=== PATIENT | male | born 1935 | race Caucasian/White ===

== ENCOUNTER 2018-10-21 15:51 | Inpatient (IN) | payer MEDICARE, OTHER ==
--- NOTE | 2018-10-21 16:15 | ED ---
Shortness of Breath - HPI Summary HPI Summary: 83 year old M presenting to [facility] accompanied by Starr with a chief complaint of shortness of breath since a few weeks ago, worse since yesterday. The patient rates the pain 0/10 in severity. Symptoms aggravated by exertion. Symptoms alleviated by nothing. reports fatigue and decreased appetite. Patient denies cough, fever, chest pain. Patient has hx COPD which he usually manages with medications per . Per , patient fell and broke his hip in June 2018 while they were in [place]. Patient was discharged home with O2 per , and stopped using the O2 after 1 month. Per , patient left the O2 equipment in [place]. They have been checking his O2 sat since returning home from [place]. In the last couple of weeks, O2 sat was in the 70s per . Patient is a former smoker. - History of Current Complaint Chief Complaint: EDShortnessOfBreath Time Seen by Provider: 10/21/18 16:05 Hx Obtained From: Patient, Family/Director Security Management - Onset/Duration: Lasting Weeks, Still Present, Worse Since - yesterday Timing: Constant Current Severity: None Aggravating Factors: Other - exertion Alleviating Factors: Nothing - Allergy/Home Medications Allergies/Adverse Reactions: Allergies Allergy/AdvReac Type Severity Reaction Status Date / Time No Known Allergies Allergy Verified 10/21/18 16:02 PMH/Surg Hx/FS Hx/Imm Hx Previously Healthy: No Endocrine/Hematology History: Denies: Hx Diabetes Cardiovascular History: Reports: Hx Coronary Artery Disease, Hx Hypercholesterolemia, Hx Myocardial Infarction Denies: Hx Angina, Hx Hypertension, Hx Pacemaker/ICD, Hx Valvular Heart Disease Respiratory History: Reports: Hx Chronic Obstructive Pulmonary Disease (COPD) GI History: Reports: Hx Gastroesophageal Reflux Disease - HX OF History: Denies: Hx Renal Disease Sensory History: Reports: Hx Cataracts - BILAT, Hx Contacts or Glasses Denies: Hx Hearing Aid Opthamlomology History: Reports: Hx Cataracts - BILAT, Hx Contacts or Glasses Neurological History: Reports: Hx Seizures - LAST ONE 2006 Psychiatric History: Denies: Hx Panic Disorder - Cancer History Cancer Type, Location and Year: 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 DOUBLE HERNIA. BILATERAL CATARACTS. RIGHT FEMUR Hx Anesthesia Reactions: No Infectious Disease History: No Infectious Disease History: Reports: Hx Shingles Denies: Hx Clostridium Difficile, Hx Hepatitis, Hx Human Immunodeficiency Virus (HIV), Hx of Known/Suspected MRSA, Hx Tuberculosis, Traveled Outside the [place] in Last 30 Days - Family History Known Family History: Positive: Other - cancer, rheumatoid arthritis - Social History Alcohol Use: Daily Alcohol Amount: 1/DAY Hx Substance Use: No Substance Use Type: Reports: None Hx Tobacco Use: Yes Smoking Status (MU): Former Smoker Type: Cigarettes, Pipe Length of Time of Smoking/Using Tobacco: APPROX 30YRS Have You Smoked in the Last Year: No Review of Systems Positive: Fatigue. Negative: Fever Negative: Chest Pain Positive: Shortness Of Breath. Negative: Cough Positive: Other - decreased appetite All Other Systems Reviewed And Are Negative: Yes Physical Exam - Summary Physical Exam Summary: Appearance: An elderly, slender man sitting on the stretcher in no acute distress Skin: Warm, dry, no obvious rash Eyes: sclera anicteric, no conjunctival pallor ENT: mucous membranes moist, pharynx appears normal Neck: Supple, nontender Respiratory: Breath sounds are distant but I do not hear any wheezing or focal signs of consolidation Cardiovascular: Normal S1, S2. No murmurs. Normal distal pulses in tibial and radial bilaterally. Abdomen: Soft, nontender, normal active bowel sounds present Musculoskeletal: Normal, Strength/ROM Intact Neurological: A&Ox3, awake and alert, mentation is normal, speech is fluent and appropriate Psychiatric: affect is normal, does not appear anxious or depressed Triage Information Reviewed: Yes Vital Signs On Initial Exam: Initial Vitals Temp Pulse Resp BP Pulse Ox 98.9 F 75 22 111/40 77 10/21/18 15:54 10/21/18 15:54 10/21/18 15:54 10/21/18 15:54 10/21/18 15:54 Vital Signs Reviewed: Yes Diagnostics - Vital Signs Vital Signs Temp Pulse Resp BP Pulse Ox 10/21/18 15:54 98.9 F 75 22 111/40 77 - Laboratory Result Diagrams: 10/21/18 16:22 10/21/18 16:22 Lab Statement: Any lab studies that have been ordered have been reviewed, and results considered in the medical decision making process. - Radiology CXR Radiology Interpretation Completed By: Radiologist Summary of Radiographic Findings: COPD WITH CHRONIC FIBROTIC CHANGE. ED physician has reviewed this report. - EKG 1623 Cardiac Rate: NL - 82 BPM EKG Rhythm: Sinus Rhythm Summary of EKG Findings: NSR at 82 BPM, P waves, QRS complex, and T waves are within normal limits, T waves and intervals are normal, no ischemic changes. This is a normal EKG. Course/Dx - Course Course Of Treatment: 83 year old M presenting to [facility] accompanied by Starr with a chief complaint of shortness of breath since a few weeks ago, worse since yesterday. reports fatigue and decreased appetite. Patient denies cough, fever, chest pain. Patient has hx COPD which he usually manages with medications per . In the last couple of weeks, O2 sat was in the 70s per . Patient is a former smoker. Physical exam findings: An elderly, slender man sitting on the stretcher in no acute distress. He has breath sounds that are distant but I do not hear any wheezing or focal signs of consolidation. An EKG reveals NSR at 82 BPM, P waves, QRS complex, and T waves are within normal limits, T waves and intervals are normal, no ischemic changes. The patient has a normal EKG. CXR reveals, per radiologist, COPD WITH CHRONIC FIBROTIC CHANGE. Test results with no significant abnormalities except for RBC 4.14, MCCV 106, MCH 36, absolute lymphs 0.5, D-dimer 260, BUN 31, creatinine 1.45, BUN/Creatinine ratio 21.4, glucose 127, alkaline phosphatase 109. In ED course, patient was given Duoneb. Spoke with Dr. Thomson, claudia , who agrees to admit patient. Patient will be admitted to the hospitalist. The patient is agreeable with this plan. - Diagnoses Provider Diagnoses: COPD (chronic obstructive pulmonary disease), Hypoxemia - Physician Notifications Discussed Care of Patient With: Lucho Thomson Time Discussed With Above Provider: 18:19 Instructed by Provider To: Other - Spoke with amna Cantrellist, who agrees to admit patient. Discharge - Sign-Out/Discharge Documenting (check all that apply): Patient Departure - Admit Patient Received Moderate/Deep Sedation with Procedure: No - Discharge Plan Condition: Stable Disposition: ADMITTED TO [facility] - Billing Disposition and Condition Condition: STABLE Disposition: Admitted to [facility] - Attestation Statements Document Initiated by Scribe: Yes Documenting Scribe: Quin Mejia Provider For Whom Scribe is Documenting (Include Credential): Jda Adams MD Scribe Attestation: I, Quin Mejia, scribed for Jad Adams MD on 10/21/18 at 2207. Scribe Documentation Reviewed: Yes Provider Attestation: The documentation as recorded by the scribe, Quin Mejia accurately reflects the service I personally performed and the decisions made by me, Jad Adams MD Status of Scribe Document: Viewed
[2018-10-21 16:31] LABS: ABS Eosinophils 0.1 10^3/ul (0-0.6); ABS Lymphocytes 0.5 10^3/ul (1.0-4.8); ABS Monocytes 0.6 10^3/ul (0-0.8); ABS Neutrophils 3.6 10^3/ul (1.5-7.7); Eosinophil % 2.6 %; Hematocrit 44 % (42-52); Hemoglobin 14.9 g/dL (14.0-18.0); Lymphocyte % 9.6 %; Mean Corpuscular HGB Conc 34 g/dL (31-36); Mean Corpuscular Hemoglobin 36 pg (27-31); Mean Corpuscular Volume 106 fL (80-94); Mean Platelet Volume 8.2 fL (7.4-10.4); Platelet Count 231 10^3/uL (150-450); Red Blood Count 4.14 10^6 /uL (4.18-5.48); Red Cell Distribution Width 14 % (10-15); White Blood Count 4.9 10^3/uL (3.5-10.8)
--- OUTSIDE RECORDS SUMMARY | 2018-10-21 16:39 | XMS REPORT | Continuity of Care Document ---
:1935 External Reference #:[id number] Author Name Marko Saldana MD Address [address] [place] [address] Care Team Providers Name Role Phone Marko Saldana MD Care Team Information Lead Enterprise Architect Unavailable Payers Date Identification Numbers Payment Provider Subscriber Effective: Policy Number: [id number] Medicare - Bswny d Ravin Cooper 2015 PayID: [id number] [address] [place] [address] Effective: 2015 Policy Number: [id number] WPS For Life Ravin Cooper PayID: [id number] [address] [place] [address] Family History Date Family Member(s) Observation Comments General Cancer, Esophageal General Rheumatoid Arthritis Social History Type Date Description Comments Sex Unknown Marital Status Lives With Female Partner Yonis (58 years). 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 Tobacco Use Start: Unknown Former Cigarette Quit 30+ YA End: Unknown Smoker ETOH Use Currently consumes 1.5 drinks daily alcohol Recreational Drug Use Denies Drug Use Exercise Type/Frequency Exercises regularly Exercises 4/wk. Allergies, Adverse Reactions, Alerts Description No Known Drug Allergies Medications Active Medications SIG Qnty Indications Ordering Date Provider Proair HFA inhale 2 puffs 25.5gm M25.559 Marko 04/14/2016 every 4 to 6 MD Nicholas 108(90Base) mcg/Act hours as needed Aerosol for wheezing or shortness of breath Advair Diskus Use 1 Inhalation [id number] Marko 04/14/2016 Twice A Day For MD Nicholas 100-50mcg/Dose Asthma Aerosol Carbatrol 2x daily Marko 01/01/2016 200mg MD Nicholas Caps ER 12HR Folic Acid 1 by mouth every Marko 01/01/2016 5mg day MD Nicholas Capsules Vitamin B12 1 by mouth every Marko 01/01/2016 5000mcg day MD Nicholas Tablets ER Aspirin 1 by mouth every Marko 01/01/2016 81mg day MD Nicholas Tablets DR Fish Oil Marko 01/01/2016 Concentrate MD Nicholas 1000mg Capsules Stool Softener 4 by mouth every Unknown day 100mg Capsules Atorvastatin Will Carcamo Calcium MD 10mg Tablets History Medications Cialis 1 by mouth every 30tabs N40.1 Marko Saldana, 09/08/2016 - 5mg day as needed 12/09/2016 Tablets Cephalexin 1 tab by mouth 9caps S61.012A Marko Saldana, 01/19/2016 - three times a day 09/08/2016 500mg Capsules Lipitor take one tablet by 30tabs Marko Saldana, 01/01/2016 - 80mg mouth every day as 10/06/2018 Tablets directed for high cholesterol Tamsulosin HCL take 1 capsule by 90caps N40.1 Marko Saldana, 2015 - mouth daily and 09/08/2016 0.4mg Capsules strain urine Immunizations CPT Code Status Date Vaccine Lot # 12049 Given 02/28/2018 [place] [id number] Given 12/09/2016 Tdap (Adacel) [id number] Given 09/08/2016 Prevnar-13 Pneumococcal Conjugate Vaccine [id number] 93051 Given 01/01/2016 Influenza Vaccine High Dose PF [id number] Given 05/09/2001 Pneumovax 23 (PPSV23) 65+ years or high risk 2 to 64 year old Vital Signs Date Vital Result Comment 10/06/2018 11:11am Weight 159.00 lb Weight 72.122 kg BP Systolic 100 mmHg BP Diastolic 60 mmHg Heart Rate 56 /min Body Temperature 98.6 F Respiratory Rate 20 /min O2 % BldC Oximetry 88 % 12/09/2016 12:55pm Weight 158.00 lb Weight 71.669 kg BP Systolic 102 mmHg BP Diastolic 54 mmHg Heart Rate 72 /min Body Temperature 98.4 F Respiratory Rate 20 /min Height 66.5 inches 5'6.50" BMI (Body Mass Index) 25.1 kg/m2 O2 % BldC Oximetry 93 % 09/08/2016 9:29am Weight 166.00 lb Weight 75.298 kg BP Systolic 112 mmHg BP Diastolic 54 mmHg Heart Rate 60 /min Body Temperature 98.1 F Respiratory Rate 16 /min O2 % BldC Oximetry 94 % copd 04/14/2016 9:46am Weight 166.00 lb Weight 75.298 kg BP Systolic 130 mmHg BP Diastolic 64 mmHg Heart Rate 69 /min Body Temperature 97.9 F Respiratory Rate 18 /min O2 % BldC Oximetry 96 % 01/19/2016 10:44am Weight 166.00 lb Weight 75.298 kg BP Systolic 130 mmHg BP Diastolic 62 mmHg Heart Rate 64 /min Body Temperature 98.0 F O2 % BldC Oximetry 96 % 01/01/2016 12:59pm Weight 162.00 lb Weight 73.483 kg BP Systolic 116 mmHg BP Diastolic 64 mmHg Heart Rate 68 /min Body Temperature 98.4 F Respiratory Rate 22 /min Height 67 inches 5'7" BMI (Body Mass Index) 25.4 kg/m2 Results Test Date Facility Test Result H/L Range Note Comp Metabolic 02/17/2018 [facility] Sodium 140 mmol/ L N 135-145 Panel [phone] Potassium 4.5 mmol/L N 3.5-5.0 Chloride 110 mmol/L N 101-111 Co2 Carbon Dioxide 25 mmol/L N 22-32 Anion Gap 5 mmol/L N 2-11 Glucose 95 mg/dL N 70-100 Blood Urea Nitrogen 20 mg/dL N 6-24 Creatinine 1.06 mg/dL N 0.67-1.17 BUN/Creatinine Ratio 18.9 N 8-20 Calcium 8.7 mg/dL N 8.6-10.3 Total Protein 5.7 g/dL Low 6.4-8.9 Albumin 3.7 g/dL N 3.2-5.2 Globulin 2.0 g/dL N 2-4 Albumin/Globulin Ratio 1.9 N 1-3 Total Bilirubin 0.50 mg/dL N 0.2-1.0 Alkaline Phosphatase 88 U/L N 34-104 Alt 22 U/L N 7-52 Ast 24 U/L N 13-39 Egfr Non- 66.9 >60 Egfr 80.9 >60 1 Lipid Profile 02/17/2018 [facility] Triglycerides 54 mg/dL 2 (Trig/Chol/HDL) [phone] Cholesterol 146 mg/dL 3 HDL Cholesterol 57.3 mg/dL 4 LDL Cholesterol 78 mg/dL 5 Laboratory test 02/17/2018 [facility] Creatine 55 U/ L N 10-223 6 finding [phone] Kinase(CK) Comp Metabolic 12/08/2017 [facility] Sodium 140 N 135-145 Panel [phone] mmol/L Potassium 4.5 mmol/L N 3.5-5.0 Chloride 108 mmol/L N 101-111 Co2 Carbon Dioxide 27 mmol/L N 22-32 Anion Gap 5 mmol/L N 2-11 Glucose 99 mg/dL N 70-100 Blood Urea Nitrogen 20 mg/dL N 6-24 Creatinine 1.13 mg/dL N 0.67-1.17 BUN/Creatinine Ratio 17.7 N 8-20 Calcium 8.5 mg/dL Low 8.6-10.3 Total Protein 5.8 g/dL Low 6.4-8.9 Albumin 3.5 g/dL N 3.2-5.2 Globulin 2.3 g/dL N 2-4 Albumin/Globulin Ratio 1.5 N 1-3 Total Bilirubin 0.30 mg/dL N 0.2-1.0 Alkaline Phosphatase 112 U/L High 34-104 Alt 22 U/L N 7-52 Ast 24 U/L N 13-39 Egfr Non- 62.3 >60 Egfr 75.4 >60 7 Lipid Profile 12/08/2017 [facility] Triglycerides 40 mg/dL 8 (Trig/Chol/HDL) [phone] Cholesterol 123 mg/dL 9 HDL Cholesterol 50.9 mg/dL 10 LDL Cholesterol 64 mg/dL 11 Laboratory test 12/08/2017 [facility] Creatine Kinase 88 U/L N 10-223 finding [phone] B-Type Natriuretic Peptide BNP 47 pg/mL 12 CBC Auto Diff 12/08/2017 [facility] White Blood 4.0 10^3/uL N 3.5-10.8 [phone] Count Red Blood Count 3.95 10^6/uL Low 4.00-5.40 Hemoglobin 14.4 g/dL N 14.0-18.0 Hematocrit 42 % N 42-52 Mean Corpuscular Volume 106 fL High 80-94 Mean Corpuscular Hemoglobin 37 pg High 27-31 Mean Corpuscular HGB Conc 34 g/dL N 31-36 Red Cell Distribution Width 13 % N 10.5-15 Platelet Count 180 10^3/uL N 150-450 Mean Platelet Volume 9.0 um3 N 7.4-10.4 Abs Neutrophils 2.6 10^3/uL N 1.5-7.7 Abs Lymphocytes 0.7 10^3/uL Low 1.0-4.8 Abs Monocytes 0.5 10^3/uL N 0-0.8 Abs Eosinophils 0.1 10^3/uL N 0-0.6 Abs Basophils 0 10^3/uL N 0-0.2 Abs Nucleated RBC 0 10^3/uL Granulocyte % 64.8 % N 38-83 Lymphocyte % 17.9 % Low 25-47 Monocyte % 13.6 % High 0-7 Eosinophil % 3.2 % N 0-6 Basophil % 0.5 % N 0-2 Nucleated Red Blood Cells % 0.1 Laboratory test 09/30/2017 [facility] Carbamazepine 5.9 g/mL N 4.0-12.0 13 finding [phone] (Tegretol) Comp Metabolic 09/30/2017 [facility] Sodium 142 mmol/ L N 139-145 Panel [phone] Potassium 4.4 mmol/L N 3.5-5.0 Chloride 109 mmol/L N 101-111 Co2 Carbon Dioxide 26 mmol/L N 22-32 Anion Gap 7 mmol/L N 2-11 Glucose 90 mg/dL N 70-100 Blood Urea Nitrogen 25 mg/dL High 6-24 Creatinine 1.15 mg/dL N 0.67-1.17 BUN/Creatinine Ratio 21.7 High 8-20 Calcium 8.9 mg/dL N 8.6-10.3 Total Protein 5.8 g/dL Low 6.4-8.9 Albumin 3.6 g/dL N 3.2-5.2 Globulin 2.2 g/dL N 2-4 Albumin/Globulin Ratio 1.6 N 1-3 Total Bilirubin 0.50 mg/dL N 0.2-1.0 Alkaline Phosphatase 90 U/L N 34-104 Alt 24 U/L N 7-52 Ast 26 U/L N 13-39 Egfr Non- 61.0 >60 Egfr 78.5 >60 14 CBC Auto Diff 09/30/2017 [facility] White Blood 4.1 10^3/uL N 3.5-10.8 [phone] Count Red Blood Count 3.91 10^6/uL Low 4.0-5.4 Hemoglobin 14.2 g/dL N 14.0-18.0 Hematocrit 42 % N 42-52 Mean Corpuscular Volume 107 fL High 80-94 15 Mean Corpuscular Hemoglobin 36 pg High 27-31 Mean Corpuscular HGB Conc 34 g/dL N 31-36 Red Cell Distribution Width 13 % N 10.5-15 Platelet Count 152 10^3/uL N 150-450 Mean Platelet Volume 9.0 um3 N 7.4-10.4 Abs Neutrophils 2.8 10^3/uL N 1.5-7.7 Abs Lymphocytes 0.7 10^3/uL Low 1.0-4.8 Abs Monocytes 0.5 10^3/uL N 0-0.8 Abs Eosinophils 0.1 10^3/uL N 0-0.6 Abs Basophils 0 10^3/uL N 0-0.2 Abs Nucleated RBC 0 10^3/uL Granulocyte % 68.9 % N 38-83 Lymphocyte % 16.9 % Low 25-47 Monocyte % 11.1 % High 0-7 Eosinophil % 2.7 % N 0-6 Basophil % 0.4 % N 0-2 Nucleated Red Blood Cells % 0.1 Laboratory 09/22/2017 [facility] Surgical SEE RESULT 16, 17 test finding [phone] Pathology BELOW Laboratory 12/15/2016 In House Lab Fecal Hemoglobin NEGATIVE test finding [phone] [employer] Laboratory 12/10/2016 [facility] Creatine 53 U/L N 10-2 18 test finding [phone] Kinase(CK) 23 Lipid Profile 12/10/2016 [facility] Triglycerides 52 mg/dL N 19 (Trig/Chol/HDL [phone] ) Cholesterol 124 mg/dL N 20 HDL Cholesterol 53.3 mg/dL N 21 LDL Cholesterol 60 mg/dL N 22 Comp Metabolic Panel 12/10/2016 [facility] Sodium 138 mmol/L N 133-145 [phone] Potassium 4.3 mmol/L N 3.5-5.0 Chloride 106 mmol/L N 101-111 Co2 Carbon Dioxide 25 mmol/L N 22-32 Anion Gap 7 mmol/L N 2-11 Glucose 97 mg/dL N 70-100 Blood Urea Nitrogen 20 mg/dL N 6-24 Creatinine 1.12 mg/dL N 0.67-1.17 BUN/Creatinine Ratio 17.9 N 8-20 Calcium 8.9 mg/dL N 8.6-10.3 Total Protein 5.7 g/dL Low 6.4-8.9 Albumin 3.4 g/dL N 3.2-5.2 Globulin 2.3 g/dL N 2-4 Albumin/Globulin Ratio 1.5 N 1-3 Total Bilirubin 0.50 mg/dL N 0.2-1.0 Alkaline Phosphatase 76 U/L N 34-104 Alt 19 U/L N 7-52 Ast 20 U/L N 13-39 Egfr Non- 63.1 N >60 Egfr 81.1 N >60 23 CBC Auto Diff 12/10/2016 [facility] White Blood 4.6 10^3/uL N 3.5-10.8 [phone] Count Red Blood Count 4.18 10^6/uL N 4.0-5.4 Hemoglobin 15.1 g/dL N 14.0-18.0 Hematocrit 45 % N 42-52 Mean Corpuscular Volume 107 fL High 80-94 24 Mean Corpuscular Hemoglobin 36 pg High 27-31 Mean Corpuscular HGB Conc 34 g/dL N 31-36 Red Cell Distribution Width 13 % N 10.5-15 Platelet Count 142 10^3/uL Low 150-450 Mean Platelet Volume 9 um3 N 7.4-10.4 Abs Neutrophils 3.0 10^3/uL N 1.5-7.7 Abs Lymphocytes 0.8 10^3/uL Low 1.0-4.8 Abs Monocytes 0.6 10^3/uL N 0-0.8 Abs Eosinophils 0.2 10^3/uL N 0-0.6 Abs Basophils 0 10^3/uL N 0-0.2 Abs Nucleated RBC 0.01 10^3/uL N Granulocyte % 64.1 % N 38-83 Lymphocyte % 17.5 % Low 25-47 Monocyte % 13.2 % High 1-9 Eosinophil % 4.7 % N 0-6 Basophil % 0.5 % N 0-2 Nucleated Red Blood Cells % 0.1 N Laboratory test 12/10/2016 [facility] Hemoglobin A1c 5.8 % N Less 25, 26 finding [phone] (Glyco HGB) than 6.0 Laboratory test 04/07/2016 [facility] Folic Acid > 20.00 N >3.99 finding [phone] (Folate) ng/mL Vitamin B12 695 pg/mL N 180-914 27 Comp Metabolic Panel 04/07/2016 [facility] Sodium 136 mmol/L N 133-145 [phone] Potassium 4.4 mmol/L N 3.5-5.0 Chloride 105 mmol/L N 101-111 Co2 Carbon Dioxide 27 mmol/L N 22-32 Anion Gap 4 mmol/L N 2-11 Glucose 100 mg/dL N 70-100 Blood Urea Nitrogen 19 mg/dL N 6-24 Creatinine 1.23 mg/dL High 0.67-1.17 BUN/Creatinine Ratio 15.4 N 8-20 Calcium 8.8 mg/dL N 8.6-10.3 Total Protein 5.8 g/dL Low 6.4-8.9 Albumin 3.5 g/dL N 3.2-5.2 Globulin 2.3 g/dL N 2-4 Albumin/Globulin Ratio 1.5 N 1-3 Total Bilirubin 0.60 mg/dL N 0.2-1.0 Alkaline Phosphatase 80 U/L N 34-104 Alt 25 U/L N 7-52 Ast 23 U/L N 13-39 Egfr Non- 56.6 N >60 Egfr 72.8 N >60 28 CBC Auto Diff 04/07/2016 [facility] White Blood 4.6 10^3/uL N 3.5-10.8 [phone] Count Red Blood Count 4.54 10^6/uL N 4.0-5.4 Hemoglobin 16.0 g/dL N 14.0-18.0 Hematocrit 48 % N 42-52 Mean Corpuscular Volume 105 fL High 80-94 Mean Corpuscular Hemoglobin 35 pg High 27-31 Mean Corpuscular HGB Conc 34 g/dL N 31-36 Red Cell Distribution Width 13 % N 10.5-15 Platelet Count 162 10^3/uL N 150-450 Mean Platelet Volume 9 um3 N 7.4-10.4 Abs Neutrophils 3.1 10^3/uL N 1.5-7.7 Abs Lymphocytes 0.8 10^3/uL Low 1.0-4.8 Abs Monocytes 0.6 10^3/uL N 0-0.8 Abs Eosinophils 0.1 10^3/uL N 0-0.6 Abs Basophils 0 10^3/uL N 0-0.2 Abs Nucleated RBC 0 10^3/uL N Granulocyte % 67.2 % N 38-83 Lymphocyte % 17.2 % Low 25-47 Monocyte % 13.2 % High 1-9 Eosinophil % 2.1 % N 0-6 Basophil % 0.3 % N 0-2 Nucleated Red Blood Cells % 0 N Laboratory test 04/07/2016 [facility] B-Type 25 pg/ mL N 29 finding [phone] Natriuretic Peptide BNP Comp Metabolic 01/28/2016 [facility] Sodium 137 mmol/ L N 133-1 30 Panel [phone] Potassium 4.4 mmol/L N 3.5-5.0 Chloride 105 mmol/L N 101-111 Co2 Carbon Dioxide 28 mmol/L N 22-32 Anion Gap 4 mmol/L N 2-11 Glucose 101 mg/dL High 70-100 Blood Urea Nitrogen 16 mg/dL N 6-24 Creatinine 1.15 mg/dL N 0.67-1.17 BUN/Creatinine Ratio 13.9 N 8-20 Calcium 8.9 mg/dL N 8.6-10.3 Total Protein 5.9 g/dL Low 6.4-8.9 Albumin 3.6 g/dL N 3.2-5.2 Globulin 2.3 g/dL N 2-4 Albumin/Globulin Ratio 1.6 N 1-3 Total Bilirubin 0.40 mg/dL N 0.2-1.0 Alkaline Phosphatase 86 U/L N 34-104 Alt 24 U/L N 7-52 Ast 25 U/L N 13-39 Egfr Non- 61.3 N >60 Egfr 78.9 N >60 31 Lipid Profile 01/28/2016 [facility] Triglycerides 62 mg/dL N 32 (Trig/Chol/HDL) [phone] Cholesterol 135 mg/dL N 33 HDL Cholesterol 52.1 mg/dL N 34 LDL Cholesterol 71 mg/dL N 35 Laboratory test 01/28/2016 [facility] Creatine Kinase 60 U/L N 10-223 36 finding [phone] Lipid Profile 01/01/2016 [facility] Triglycerides 78 mg/dL N 37 (Trig/Chol/HDL) [phone] Cholesterol 123 mg/dL N 38 HDL Cholesterol 49.0 mg/dL N 39 LDL Cholesterol 58 mg/dL N 40 Laboratory test 01/01/2016 [facility] Hemoglobin A1c 5.9 % N Less than 41 finding [phone] (Glyco HGB) 6.0 CBC Auto Diff 01/01/2016 [facility] White Blood 5.0 N 3.5-10.8 [phone] Count 10^3/uL Red Blood Count 4.31 10^6/uL N 4.0-5.4 Hemoglobin 15.0 g/dL N 14.0-18.0 Hematocrit 46 % N 42-52 Mean Corpuscular Volume 106 fL High 80-94 42 Mean Corpuscular Hemoglobin 35 pg High 27-31 Mean Corpuscular HGB Conc 33 g/dL N 31-36 Red Cell Distribution Width 13 % N 10.5-15 Platelet Count 161 10^3/uL N 150-450 Mean Platelet Volume 10 um3 N 7.4-10.4 Abs Neutrophils 3.6 10^3/uL N 1.5-7.7 Abs Lymphocytes 0.7 10^3/uL Low 1.0-4.8 Abs Monocytes 0.6 10^3/uL N 0-0.8 Abs Eosinophils 0.1 10^3/uL N 0-0.6 Abs Basophils 0 10^3/uL N 0-0.2 Abs Nucleated RBC 0 10^3/uL N Granulocyte % 70.8 % N 38-83 Lymphocyte % 14.8 % Low 25-47 Monocyte % 11.9 % High 1-9 Eosinophil % 2.1 % N 0-6 Basophil % 0.4 % N 0-2 Nucleated Red Blood Cells % 0.1 N Comp Metabolic Panel 01/01/2016 [facility] Sodium 139 mmol/L N 133-145 [phone] Potassium 4.8 mmol/L N 3.5-5.0 Chloride 106 mmol/L N 101-111 Co2 Carbon Dioxide 27 mmol/L N 22-32 Anion Gap 6 mmol/L N 2-11 Glucose 94 mg/dL N 70-100 Blood Urea Nitrogen 24 mg/dL N 6-24 Creatinine 1.22 mg/dL High 0.67-1.17 BUN/Creatinine Ratio 19.7 N 8-20 Calcium 9.1 mg/dL N 8.6-10.3 Total Protein 6.1 g/dL Low 6.4-8.9 Albumin 3.6 g/dL N 3.2-5.2 Globulin 2.5 g/dL N 2-4 Albumin/Globulin Ratio 1.4 N 1-3 Total Bilirubin 0.40 mg/dL N 0.2-1.0 Alkaline Phosphatase 87 U/L N 34-104 Alt 22 U/L N 7-52 Ast 21 U/L N 13-39 Egfr Non- 57.3 N >60 Egfr 73.7 N >60 43 Laboratory test 01/01/2016 [facility] PSA Screening 3.690 ng/mL N 0-4.000 44 finding [phone] 1 Because ethnic data is not always readily available, this report includes an eGFR for both -Americans and non- Americans. The National Kidney Disease Education Program (NKDEP) does not endorse the use of the MDRD equation for patients that are not between the ages of 18 and 70, are , have extremes of body size, muscle mass, or nutritional status, or are non- or non-. According to the National Kidney Foundation, irrespective of diagnosis, the stage of the disease is based on the level of kidney function: Stage Description GFR(mL/min/1.73 m(2)) 1 Kidney damage with normal or decreased GFR 90 2 Kidney damage with mild decrease in GFR 60-89 3 Moderate decrease in GFR 30-59 4 Severe decrease in GFR 15-29 5 Kidney failure <15 (or dialysis) 2 Desirable: <150 Borderline High: 150-199 High: 200-499 Very High: >500 3 Desirable: <200 Borderline High: 200-239 High: >239 4 Low: <40 Desirable: 40-60 High: >60 5 Desirable: <100 Near Optimal: 100-129 Borderline High: 130-159 High: 160-189 Very High: >189 6 FASTING draw in am prior to first dose of medication Copy Result to: MARKO SALDANA ([id number]) 7 Because ethnic data is not always readily available, this report includes an eGFR for both -Americans and non- Americans. The National Kidney Disease Education Program (NKDEP) does not endorse the use of the MDRD equation for patients that are not between the ages of 18 and 70, are , have extremes of body size, muscle mass, or nutritional status, or are non- or non-. According to the National Kidney Foundation, irrespective of diagnosis, the stage of the disease is based on the level of kidney function: Stage Description GFR(mL/min/1.73 m(2)) 1 Kidney damage with normal or decreased GFR 90 2 Kidney damage with mild decrease in GFR 60-89 3 Moderate decrease in GFR 30-59 4 Severe decrease in GFR 15-29 5 Kidney failure <15 (or dialysis) 8 Desirable: <150 Borderline High: 150-199 High: 200-499 Very High: >500 9 Desirable: <200 Borderline High: 200-239 High: >239 10 Low: <40 Desirable: 40-60 High: >60 11 Desirable: <100 Near Optimal: 100-129 Borderline High: 130-159 High: 160-189 Very High: >189 12 >100 to <200 pg/mL: likely compensated congestive heart failure (CHF) 200 to 400 pg/mL: likely moderate CHF >400 pg/mL: likely moderate to severe CHF 13 FASTING 14 Because ethnic data is not always readily available, this report includes an eGFR for both -Americans and non- Americans. The National Kidney Disease Education Program (NKDEP) does not endorse the use of the MDRD equation for patients that are not between the ages of 18 and 70, are , have extremes of body size, muscle mass, or nutritional status, or are non- or non-. According to the National Kidney Foundation, irrespective of diagnosis, the stage of the disease is based on the level of kidney function: Stage Description GFR(mL/min/1.73 m(2)) 1 Kidney damage with normal or decreased GFR 90 2 Kidney damage with mild decrease in GFR 60-89 3 Moderate decrease in GFR 30-59 4 Severe decrease in GFR 15-29 5 Kidney failure <15 (or dialysis) 15 Consistent with Previous Results Reported on 12/10/16 16 1198-A:Morphology: ;DDX: Squamous Cell Carcinoma;Location: right mid helix; 1198-B:Morphology: ;D 17 SEE RESULT BELOW Name: RAVIN COOPER : [address]: Gabriela Schwartz MD Acct: [id number] Unit: [id number] AGE: 82 Location: [facility] Re09/22/17 SEX: M Status: REG REF SPEC: [id number] ELI: 09/22/17-1309 [facility] DR: Gabriela Schwartz MD REQ: [id number] RECD: 09/22/17 STATUS: TORRES HORTA DR: Marko Saldana MD _ ORDERED: LEVEL 4/2 COMMENTS: [id number] FINAL DIAGNOSIS 1. Skin, right mid helix, biopsy: -- Hypertrophic actinic keratosis. 2. Skin, left mid helix, biopsy: -- Invasive squamous cell carcinoma, well-differentiated. PRE-OPERATIVE DIAGNOSIS Squamous cell carcinoma GROSS DESCRIPTION 1. The specimen is received in formalin labeled, Right Mid [place], and consists of a 0.8 x 0.5 by up to 0.3 cm white-pink indurated skin fragment which is inked, trisected and entirely submitted in one cassette. 2. The specimen is received in formalin labeled, Left Mid [place], and consists of a 0.5 x 0.5 x 0.2 cm blanched white friable bosselated to scabrous skin fragment with a 0.3 x 0.2 cm erythematous area. The specimen is inked, bisected and entirely submitted in one cassette. Signed by and Reported on: Elena Randolph MD 09/23/17 1022 END OF REPORT DEPARTMENT OF PATHOLOGY, [address] [place] [address] Emigdio Chin M.D. Director [facility] # [id number] 18 FASTING cc pmd Copy Result to: MARKO SALDANA ([id number]) 19 Desirable <150 Borderline high 150-199 High 200-499 Very High >500 20 Desirable <200 Borderline high 200-239 High >239 21 Low <40 Desirable: 40-60 High: >60 22 Desirable: <100 mg/dL Near Optimal: 100-129 mg/dL Borderline High: 130-159 mg/dL High: 160-189 mg/dL Very High: >189 mg/dL 23 Because ethnic data is not always readily available, this report includes an eGFR for both -Americans and non- Americans. The National Kidney Disease Education Program (NKDEP) does not endorse the use of the MDRD equation for patients that are not between the ages of 18 and 70, are , have extremes of body size, muscle mass, or nutritional status, or are non- or non-. According to the National Kidney Foundation, irrespective of diagnosis, the stage of the disease is based on the level of kidney function: Stage Description GFR(mL/min/1.73 m(2)) 1 Kidney damage with normal or decreased GFR 90 2 Kidney damage with mild decrease in GFR 60-89 3 Moderate decrease in GFR 30-59 4 Severe decrease in GFR 15-29 5 Kidney failure <15 (or dialysis) 24 Consistent with previous results on 04/07/16. 25 cbc, cmp, lipid were done by another doc. Results are in another order dated 12/10/13. 26 Therapeutic target for the treatment of diabetes Mellitus patients is <7% HBA1C, and in selective patients <6.0%.Please refer to [place] [employer] Diabetic care guidelines for further information. 27 Normal Range 180 to 914 Indeterminate Range 145 to 180 Deficient Range <145 28 Because ethnic data is not always readily available, this report includes an eGFR for both -Americans and non- Americans. The National Kidney Disease Education Program (NKDEP) does not endorse the use of the MDRD equation for patients that are not between the ages of 18 and 70, are , have extremes of body size, muscle mass, or nutritional status, or are non- or non-. According to the National Kidney Foundation, irrespective of diagnosis, the stage of the disease is based on the level of kidney function: Stage Description GFR(mL/min/1.73 m(2)) 1 Kidney damage with normal or decreased GFR 90 2 Kidney damage with mild decrease in GFR 60-89 3 Moderate decrease in GFR 30-59 4 Severe decrease in GFR 15-29 5 Kidney failure <15 (or dialysis) 29 >100 to <200 pg/mL: likely compensated congestive heart failure (CHF) 200 to 400 pg/mL: likely moderate CHF >400 pg/mL: likely moderate to severe CHF 30 FASTING 31 Because ethnic data is not always readily available, this report includes an eGFR for both -Americans and non- Americans. The National Kidney Disease Education Program (NKDEP) does not endorse the use of the MDRD equation for patients that are not between the ages of 18 and 70, are , have extremes of body size, muscle mass, or nutritional status, or are non- or non-. According to the National Kidney Foundation, irrespective of diagnosis, the stage of the disease is based on the level of kidney function: Stage Description GFR(mL/min/1.73 m(2)) 1 Kidney damage with normal or decreased GFR 90 2 Kidney damage with mild decrease in GFR 60-89 3 Moderate decrease in GFR 30-59 4 Severe decrease in GFR 15-29 5 Kidney failure <15 (or dialysis) 32 Desirable <150 Borderline high 150-199 High 200-499 Very High >500 33 Desirable <200 Borderline high 200-239 High >239 34 Low <40 Desirable: 40-60 High: >60 35 Desirable: <100 mg/dL Near Optimal: 100-129 mg/dL Borderline High: 130-159 mg/dL High: 160-189 mg/dL Very High: >189 mg/dL 36 FASTING 37 Desirable <150 Borderline high 150-199 High 200-499 Very High >500 38 Desirable <200 Borderline high 200-239 High >239 39 Low <40 Desirable: 40-60 High: >60 40 Desirable: <100 mg/dL Near Optimal: 100-129 mg/dL Borderline High: 130-159 mg/dL High: 160-189 mg/dL Very High: >189 mg/dL 41 Therapeutic target for the treatment of diabetes Mellitus patients is <7% HBA1C, and in selective patients <6.0%.Please refer to [place] [employer] Diabetic care guidelines for further information. 42 Consistent with previous results on 10/29/15. 43 Because ethnic data is not always readily available, this report includes an eGFR for both -Americans and non- Americans. The National Kidney Disease Education Program (NKDEP) does not endorse the use of the MDRD equation for patients that are not between the ages of 18 and 70, are , have extremes of body size, muscle mass, or nutritional status, or are non- or non-. According to the National Kidney Foundation, irrespective of diagnosis, the stage of the disease is based on the level of kidney function: Stage Description GFR(mL/min/1.73 m(2)) 1 Kidney damage with normal or decreased GFR 90 2 Kidney damage with mild decrease in GFR 60-89 3 Moderate decrease in GFR 30-59 4 Severe decrease in GFR 15-29 5 Kidney failure <15 (or dialysis) 44 Serum levels of PSA measured using the [employer] [place] DXI Hybritech immunoassay should not be interpreted as absolute evidence of the presence or absence of disease. The PSA value should be used in conjunction with other pertinent clinical diagnostic procedures. The values obtained with different assay methods or kits cannot be used interchangeably. Procedures Date Code Description Status 10/06/2018 19248 Brief Emotional/Behav Assessment W/ Scoring Doc Per Completed Standard Inst 04/14/2016 35558 Spirometry Completed Encounters Type Date Location Provider Dx Diagnosis Office Visit 12/09/2016 Main Office Marko Saldana, Z00.8 Encounter for other 1:00p general examination N40.1 Benign prostatic hyperplasia with lower urinary tract symp E78.5 Hyperlipidemia, unspecified G40.89 Other seizures Z23 Encounter for immunization Office Visit 09/08/2016 9:30a Main Office Marko Saldana, N40.1 Benign prostatic MD hyperplasia with lower urinary tract symp F52.21 Male erectile disorder R42 Dizziness and giddiness Z23 Encounter for immunization Office Visit 04/14/2016 9:45a Main Office Marko Saldana, R06.2 Wheezing MD Office Visit 01/19/2016 10:45a Main Office Marko Saldana, S61.012A Laceration w/o fb MD of left thumb w/o damage to nail, init Office Visit 01/01/2016 1:00p Main Office Marko Saldana, Z00.8 Encounter for other general examination N40.1 Enlarged prostate with lower urinary tract symptoms Z23 Encounter for immunization Plan of Treatment 10/06/2018 - Marko Saldana, MDM25.559 Pain in unspecified hipNew Therapy: Physical Therapy-Evaluate And TreatComments:I think the request for additional strength training and balance training in the wake of his hip fracture is very reasonable. Overall he is recovering very nicely, but he did have a fall with injury and we would like to be careful in preventing another one.Follow up:PT [id number] Chronic obstructive pulmonary disease, unspecifiedComments:His COPD has progressed to the point where he is borderline in terms of oxygen. the patient himself prefers to avoid that step at this time.The three-part test itself was inconclusive, he did not seem to benefit that much from the oxygen. If it starts to bother him more, we can repeat the test and see if we get a more reasonable result.
[2018-10-21 16:49] LABS: Albumin 3.5 g/dL (3.2-5.2); Albumin/Globulin Ratio 1.1 (1-3); BUN/Creatinine Ratio 21.4 (8-20); Calcium 9.2 mg/dL (8.6-10.3); EGFR African American 56.4 (>60); EGFR Non-African American 46.6 (>60); Globulin 3.2 g/dL (2-4); Potassium 4.6 mmol/L (3.5-5.0); Total Bilirubin 0.4 mg/dL (0.2-1.0); Total Protein 6.7 g/dL (6.4-8.9); Troponin I 0.01 ng/mL (<0.04)
[2018-10-21] MEDS ORDERED: Albuterol/Ipratropium NEB.SOL* Albuterol 2.5 MG/Ipratropium 0.5 MG 3 ML INH ONE (17:50)
[2018-10-21] MEDS ORDERED: Ondansetron INJ* 2 MG/ML VIAL IV PRN (19:23)
[2018-10-21] MEDS ORDERED: Acetaminophen TAB* 325 MG PO PRN (19:23)
[2018-10-21] MEDS ORDERED: Iodixanol* (CONTRAST) 320 MG/ML 100 ML SDV IV ONE (19:51)
[2018-10-21] MEDS ORDERED: Docusate CAP* 100 MG PO PRN (20:02)
[2018-10-21] MEDS ORDERED: Spiriva Inhaler DEVICE* 1 EACH DEVICE INH ONE (21:00)
[2018-10-21] MEDS: Mometasone/Formoter 100/5 MDI INH SCH (21:14)
[2018-10-21] MEDS: Tiotropium CAP.INH* CAP.INH/18 MCG (USE ORDER SET !) INH SCH (21:21)
[2018-10-21] MEDS: Enoxaparin(*) 40 MG/0.4 ML SYR SUBCUT SCH (21:52)
[2018-10-21] MEDS: carBAMazepine ER TAB(*) 200 MG PO SCH (21:53)
--- NOTE | 2018-10-21 23:17 | HP ---
CC: Dr. Peterson * HISTORY AND PHYSICAL: DATE OF ADMISSION: 10/21/18 PRIMARY CARE PHYSICIAN: Dr. Peterson. PROVIDER: Ayad Zarate NP. ATTENDING PHYSICIAN: Dr. Lucho Thomson * (dictated by Ayad Zarate NP). STRADDLE BUG DRIVER: Dr. Carcamo. NEUROLOGIST: Dr. Christen Ramon. CHIEF COMPLAINT: Shortness of breath. HISTORY OF PRESENT ILLNESS: Mr. Cooper is an 83-year-old male who presented to the ER today with concern for worsening shortness of breath. He reports that he has been short of breath over the past 2 weeks with it worsening every day. He also reports feeling cold, and he states that he was also noted to be dusky and ashen in color by other people. He did see his PCP about a week ago, who recommended that he start back on oxygen, but he declined it at that time. Previously, he went to [place] this winter with his and states that on 's he fell and broke his left hip and had a replacement. He was in the hospital and then in subacute rehab. When he was discharged from the hospital to the rehab, he was placed on oxygen for desaturation. He was subsequently discharged back to home with oxygen, but stopped using it as he felt he did not need it any longer. He has been off of the oxygen for approximately a month and has felt okay, has denied any shortness of breath and left his home oxygen equipment in [place]. He has been home in [place] for about a month, saying that he came back in September. Of note, he states that he also had another injury following his hip surgery when he fell and actually cracked 2 ribs. Here in the ER, Mr. Cooper was noted to have oxygen saturations in the 70s, and he was placed on oxygen here and continues to have saturations in the 80s to low 90s. He is currently on 4 L nasal cannula. He does report feeling better , now being on oxygen. He denies any recent cold or flu symptoms. He denies any chest pain. He denies any sick contacts or cough. He does note that he had some wheezing and has been utilizing his albuterol inhaler for shortness of breath, although he denies any wheezing currently or to date. He denies any abdominal pain, nausea, vomiting, diarrhea, urinary symptoms, any focal weakness or sensory loss. He denies any joint pains or muscle pains, rashes or lesions. PAST MEDICAL HISTORY: Includes: 1. COPD. 2. Chronic diastolic heart failure. 3. Seizure disorder with his last seizure being several years ago. 4. Coronary artery disease with 2 stents placed. 5. Hypercholesterolemia. 6. Chronic lower extremity edema secondary to venous insufficiency. 7. Neuropathy. 8. History of skin cancer that was removed by Dr. Schwartz. HOME MEDICATIONS: 1. Docusate sodium 600 mg b.i.d. 2. [place]-3 1000 mg daily. 3. Aspirin 81 mg daily. 4. Vitamin B complex 1 tab daily. 5. Folic acid 1 mg daily. 6. Advair 100-50 one puff inhaled b.i.d. 7. Atorvastatin 10 mg q.p.m. 8. Carbamazepine 400 mg b.i.d. ALLERGIES: No known allergies. FAMILY HISTORY: Reports mother with a history of rheumatoid arthritis. His father had cancer and of cancer. SOCIAL HISTORY: He is a former smoker. He quit over 30 years ago. He does drink 1 glass of wine on most days. He denies any history of drug use. He does like to participate in renovation projects and work with chemicals. He also reports history with previous exposures. He is . His , Starr, is his healthcare proxy and surrogate decision maker in the event of emergency. They do have a MOLST on file, which indicates that he would be a DNR and trial intubation. She is to bring a copy of their MOLST form in from home. REVIEW OF SYSTEMS: A 14-point review of systems was completed. All pertinent positives and negatives as per HPI, others not mentioned are negative. PHYSICAL EXAMINATION VITAL SIGNS: Temperature 99.2, heart rate 84, respiratory rate 20, blood pressure 113/89, and O2 saturation of 88% on 4 L nasal cannula. HEENT: Head is atraumatic, normocephalic. Face is symmetrical. Pupils are equal, round, and reactive to light. Extraocular movements are intact. Anicteric sclerae. Oral mucosa is slightly dry. No oropharyngeal erythema or exudate. NECK: Supple with full range of motion. No JVD noted. No carotid bruits auscultation. No lymphadenopathy appreciated. LUNGS: Clear to auscultation, but diminished throughout. He has prolonged expiratory phase, but no significant wheezing. There are no rales. There are no rhonchi. HEART: Normal S1, S2 heart sounds with regular rate and rhythm. No murmurs. There is bilateral lower extremity edema that is pitting at about 1+. Distal pulses are present. ABDOMEN: Soft, nontender, nondistended with normoactive bowel sounds. MUSCULOSKELETAL: There is active range of motion in all 4 extremities. There is no clubbing or cyanosis. NEUROLOGIC: He is alert and oriented x4. Speech is fluent. There are no focal deficits. Cranial nerves II through XII are grossly intact. There is equal strength in the upper and lower extremities. PSYCH: His affect is appropriate. SKIN: Grossly intact. It is warm and dry. LABORATORY DATA AND DIAGNOSTIC STUDIES: CBC: WBC 4.9, hemoglobin 14.9, hematocrit 44, platelet count 231. D-dimer 260. CMP: Sodium 139, potassium 4.6, chloride 106, carbon dioxide 26, BUN 31, creatinine 1.45, glucose 127, calcium 9.2, total bilirubin 0.4, AST 25, ALT 23, alk phos 109, troponin 0.01. BNP 63. Total protein 6.7, albumin 3.5. EKG reviewed and compared to previous shows normal sinus rhythm at 82 beats per minute with P waves. No ischemic ST or T-wave changes. Chest x-ray shows COPD with chronic fibrotic change. Old medical records were reviewed. ASSESSMENT AND PLAN: This is an 83-year-old male who presents today with concern for shortness of breath with accompanying hypoxemia. We will admit him to OBV status. He is not in any acute distress, but there is concern for his level of hypoxemia. Plan is as follows: 1. Shortness of breath with hypoxemia: Suspect chronic obstructive pulmonary disease, although there appeared to be no relevant accompanying symptoms and the onset of his hypoxia is somewhat confusing. I do think he may benefit from a CT scan to more definitively look at his lungs, so this has been ordered with contrast. His D-dimer is 260, but given that he was tolerating being off of oxygen and now has a significant oxygen requirement with significant desaturations, I do feel that further evaluation is warranted. He states that he has been on Advair for years with little effect noted. Likely with his level of chronic obstructive pulmonary disease, he would benefit from Spiriva, which I have started. I do not hear any overt wheezing. He is not in any acute distress while wearing his oxygen. I do not think steroids are indicated at this time, although they certainly could be added on. He does not appear toxic. He is afebrile. He does not have a white count. He likely does not need antibiotics at this time, but we will continue to evaluate. He will definitely need home oxygen, and when this is ,arranged he likely could go home with further outpatient workup. We discussed that he will likely benefit from a pulmonology consult. If there is time and availability, Dr. Guillen could perhaps see him as an inpatient if available. 2. Chronic diastolic heart failure with chronic lower extremity edema. This does not appear to be an acute exacerbation. Per the patient, his weights at home have been stable. We will perform daily weights here. He is not on any diuretics. He does not complain of leg pain or worsening edema. We will continue to monitor. 3. Microcytosis. He is on vitamin B12 and folic acid, which we will continue. Continue outpatient followup with his PCP. 4. Coronary artery disease. Continue aspirin 81 mg and atorvastatin. 5. History of seizure disorder. He is on Tegretol, which we will continue. He should continue outpatient neurology followup as indicated. 6. FEN. He is ordered a heart-healthy diet. 7. DVT prophylaxis. He is ordered Lovenox. 8. Code status. He is a DNR, trial intubation. 9. Disposition. To be discharged to home when medically stable. TIME SPENT: Approximately 65 minutes was spent on admission with greater than half of the time spent [id number] with the patient and his , obtaining history and physical, performing the physical examination, and reviewing the plan of care. Plan of care was also reviewed with my attending, Dr. Lucho Thomson, who is in agreement. AYAD ZARATE, RIAN [id number]/CPS #: [id number] RENNY
[2018-10-22 07:04] LABS: ABS Eosinophils 0.1 10^3/ul (0-0.6); ABS Lymphocytes 0.4 10^3/ul (1.0-4.8); ABS Monocytes 0.6 10^3/ul (0-0.8); ABS Neutrophils 2.6 10^3/ul (1.5-7.7); Eosinophil % 3.5 %; Hematocrit 39 % (42-52); Hemoglobin 13.5 g/dL (14.0-18.0); Lymphocyte % 10.8 %; Mean Corpuscular HGB Conc 34 g/dL (31-36); Mean Corpuscular Hemoglobin 36 pg (27-31); Mean Corpuscular Volume 106 fL (80-94); Mean Platelet Volume 8.6 fL (7.4-10.4); Platelet Count 198 10^3/uL (150-450); Red Blood Count 3.72 10^6 /uL (4.18-5.48); Red Cell Distribution Width 14 % (10-15); White Blood Count 3.8 10^3/uL (3.5-10.8)
[2018-10-22 07:11] LABS: Anion Gap 7 mmol/L (2-11); BUN/Creatinine Ratio 19.7 (8-20); Blood Urea Nitrogen 23 mg/dL (6-24); CO2 Carbon Dioxide 22 mmol/L (22-32); Calcium 8.3 mg/dL (8.6-10.3); Chloride 108 mmol/L (101-111); EGFR African American 72.2 (>60); EGFR Non-African American 59.7 (>60); Glucose 116 mg/dL (70-100); Sodium 137 mmol/L (135-145)
[2018-10-22] MEDS: carBAMazepine ER TAB(*) 200 MG PO SCH ×2 (07:39→21:43)
[2018-10-22] MEDS: OMEGA PO SCH (07:40)
[2018-10-22] MEDS: Folic Acid TAB* 1 MG PO SCH (07:40)
[2018-10-22] MEDS: Vitamin B Complex TAB PO SCH (07:40)
[2018-10-22] MEDS: FISH OIL PO SCH (07:40)
[2018-10-22] MEDS: EPA PO SCH (07:40)
[2018-10-22] MEDS: DHA PO SCH (07:40)
[2018-10-22] MEDS: Aspirin EC TAB* 81 MG TAB.EC PO SCH (07:40)
[2018-10-22] MEDS: Mometasone/Formoter 100/5 MDI INH SCH ×2 (08:39→19:53)
[2018-10-22 09:49] LABS: Folate > 20.00 ng/mL (>3.99)
[2018-10-22] MEDS: Docusate CAP* 100 MG PO SCH ×2 (10:23→21:43)
[2018-10-22] MEDS: Polyethylene Glycol 3350* 17 GM PACKET PO SCH ×2 (10:23→21:44)
--- NOTE | 2018-10-22 11:15 | PN ---
Subjective Date of Service: 10/22/18 Interval History: Mr. Cooper is feeling better today. He offers no complaints other than wanting to go home. SOB has improved, but still having SOB when ambulating to the bathroom. He denies CP, N/V. Asking for Colace 300mg BID as that is what he takes at home. He has problems with constipation. Disappointed that he will need to go home with oxygen, but understanding and agreeable. No concerns from nursing. Family History: Unchanged from Admission Social History: Unchanged from Admission Past Medical History: Unchanged from Admission Objective Active Medications: Acetaminophen (Tylenol Tab*) 650 mg PO Q4H PRN FEVER/PAIN Aspirin (Aspirin Ec Tab*) 81 mg PO DAILY DOREEN Atorvastatin Calcium (Lipitor*) 10 mg PO QPM DOREEN Carbamazepine (Tegretol Xr Tab(*)) 400 mg PO BID DOREEN Docusate Sodium (Colace Cap*) 100 mg PO BEDTIME DOREEN Docusate Sodium (Colace Cap*) 200 mg PO DAILY DOREEN Enoxaparin Sodium (Lovenox(*)) 40 mg SUBCUT Q24H DOREEN Folic Acid (Folvite Tab*) 1 mg PO DAILY DOREEN Mometasone Furoate/Formoterol Fumar (Dulera 100/5 Mdi*) 2 puff INH BID DOREEN ([place]-3/Dha/Epa/ (Fish Oil 1,000 Mg)) 1,000 mg PO DAILY DOREEN Ondansetron HCl (Zofran Inj*) 4 mg IV Q6H PRN NAUSEA/VOMITING Polyethylene Glycol/Electrolytes (Miralax*) 17 gm PO BID DORENE Tiotropium [place] (Spiriva Cap.Inh*) 1 cap INH 0900 DOREEN Vitamin B Complex/Vitamin E (B Complex-50*) 1 tab PO DAILY [facility] Vital Signs - 8 hr 10/22/18 10/22/18 10/22/18 07:34 07:45 08:40 Temperature 98.6 F Pulse Rate 81 89 Respiratory 16 16 18 Rate Blood Pressure 117/56 (mmHg) O2 Sat by Pulse 91 91 96 Oximetry Oxygen Devices in Use Now: Nasal Cannula - 6L Appearance: Elderly male sitting in bed in NAD Eyes: No Scleral Icterus Ears/Nose/Mouth/Throat: Mucous Membranes Moist Neck: NL Appearance and Movements; NL JVP, Trachea Midline Respiratory: Symmetrical Chest Expansion and Respiratory Effort, Clear to Auscultation - Diminished Cardiovascular: NL Sounds; No Murmurs; No JVD, RRR Abdominal: NL Sounds; No Tenderness; No Distention Skin: No Rash or Ulcers Neurological: Alert and Oriented x 3 Lines/Tubes/Other Access: Clean, Dry and Intact Peripheral IV Nutrition: Taking PO's Result Diagrams: 10/22/18 06:38 10/22/18 06:38 Assess/Plan/Problems-Billing Assessment: Mr. Cooper is an 83 yo M with PMH of COPD, chronic dCHF, seizures, CAD with stents, HLD, venous insufficiency, and neuropathy; who was recently placed on home oxygen after hip replacement but subsequently stopped using the oxygen and he did not feel he needed it and now presents with hypoxia. - Patient Problems (1) Hypoxia Code(s): R09.02 - HYPOXEMIA Comment: - Secondary to advancing COPD - CTA negative for PE or pneumonia - Recently on 3L oxygen at home after hip repair (in [place]) but subsequently stopped as he did not feel he needed it any longer - Will need home oxygen arranged; walk test tomorrow - Titrate oxygen to maintain sat >88% (2) COPD (chronic obstructive pulmonary disease) Code(s): J44.9 - CHRONIC OBSTRUCTIVE PULMONARY DISEASE, UNSPECIFIED Comment: - No evidence of exacerbation or indication for steroids - Will need outpatient f/u with pulmonology - Continue Spiriva (started on admission), Dulera (3) Chronic diastolic congestive heart failure Code(s): I50.32 - CHRONIC DIASTOLIC (CONGESTIVE) HEART FAILURE Comment: - No evidence of exacerbation - Not on home medication - Daily weights (4) Seizure disorder Code(s): G40.909 - EPILEPSY, UNSP, NOT INTRACTABLE, WITHOUT STATUS EPILEPTICUS Comment: - Continue Tegretol (5) CAD (coronary artery disease) Code(s): I25.10 - ATHSCL HEART DISEASE OF [place] CORONARY ARTERY W/O ANG PCTRS Comment: - Continue aspirin, atorvastatin (6) Hyperlipidemia Code(s): E78.5 - HYPERLIPIDEMIA, UNSPECIFIED Comment: - Continue atorvastatin (7) Macrocytosis without anemia Code(s): D75.89 - OTHER SPECIFIED DISEASES OF BLOOD AND BLOOD-FORMING ORGANS Comment: - Chronic, MCV at baseline - Vitamin B and folic acid levels WNL - Continue vit B, folic acid (8) DVT prophylaxis Code(s): Z29.9 - ENCOUNTER FOR PROPHYLACTIC MEASURES, UNSPECIFIED Comment: - Lovenox (9) DNR (do not resuscitate) Comment: Status and Disposition: Observation. Will need home oxygen arranged prior to d/c. Attending: Migdalia Zarate
[2018-10-22] MEDS: Atorvastatin* 10 MG TAB PO SCH (16:33)
[2018-10-22] MEDS ORDERED: Polyethylene Glycol 3350* 17 GM PACKET PO SCH (21:00)
[2018-10-22] MEDS: Enoxaparin(*) 40 MG/0.4 ML SYR SUBCUT SCH (21:44)
[2018-10-23] MEDS: Tiotropium CAP.INH* CAP.INH/18 MCG (USE ORDER SET !) INH SCH (08:44)
[2018-10-23] MEDS: Mometasone/Formoter 100/5 MDI INH SCH ×2 (08:44→20:00)
[2018-10-23] MEDS: FISH OIL PO SCH (09:07)
[2018-10-23] MEDS: DHA PO SCH (09:07)
[2018-10-23] MEDS: EPA PO SCH (09:07)
[2018-10-23] MEDS: OMEGA PO SCH (09:07)
[2018-10-23] MEDS: Polyethylene Glycol 3350* 17 GM PACKET PO SCH ×2 (09:19→21:56)
[2018-10-23] MEDS: Vitamin B Complex TAB PO SCH (09:21)
[2018-10-23] MEDS: Folic Acid TAB* 1 MG PO SCH (09:21)
[2018-10-23] MEDS: Docusate CAP* 100 MG PO SCH ×2 (09:21→21:57)
[2018-10-23] MEDS: Aspirin EC TAB* 81 MG TAB.EC PO SCH (09:21)
[2018-10-23] MEDS: carBAMazepine ER TAB(*) 200 MG PO SCH ×2 (09:21→21:57)
--- NOTE | 2018-10-23 14:16 | PN ---
Subjective Date of Service: 10/23/18 Interval History: Mr. Cooper is feeling fine today. He offers no complaints and would like to go home. He denies SOB at rest, but had some SOB while ambulating to the bathroom. Has an occasional dry cough which is his baseline. Denies CP, N/V. Nursing reports patient desaturated overnight and was up to 15L at one point. Now down to 8L this morning on my exam. After my exam, nurse ambulated with patient. He ambulated with 10L and dropped to 82%. Family History: Unchanged from Admission Social History: Unchanged from Admission Past Medical History: Unchanged from Admission Objective Active Medications: Acetaminophen (Tylenol Tab*) 650 mg PO Q4H PRN FEVER/PAIN Aspirin (Aspirin Ec Tab*) 81 mg PO DAILY DOREEN Atorvastatin Calcium (Lipitor*) 10 mg PO QPM DOREEN Carbamazepine (Tegretol Xr Tab(*)) 400 mg PO BID DOREEN Docusate Sodium (Colace Cap*) 100 mg PO BEDTIME DOREEN Docusate Sodium (Colace Cap*) 200 mg PO DAILY DOREEN Enoxaparin Sodium (Lovenox(*)) 40 mg SUBCUT Q24H DOREEN Folic Acid (Folvite Tab*) 1 mg PO DAILY DOREEN Mometasone Furoate/Formoterol Fumar (Dulera 100/5 Mdi*) 2 puff INH BID DOREEN ([place]-3/Dha/Epa/ (Fish Oil 1,000 Mg)) 1,000 mg PO DAILY DOREEN Ondansetron HCl (Zofran Inj*) 4 mg IV Q6H PRN NAUSEA/VOMITING Polyethylene Glycol/Electrolytes (Miralax*) 17 gm PO BID DOREEN Tiotropium [place] (Spiriva Cap.Inh*) 1 cap INH 0900 DOREEN Vitamin B Complex/Vitamin E (B Complex-50*) 1 tab PO DAILY DOREEN Vital Signs - 8 hr 10/23/18 10/23/18 10/23/18 08:00 08:45 09:00 Temperature 98.1 F Pulse Rate 73 75 Respiratory 19 18 Rate Blood Pressure 120/63 (mmHg) O2 Sat by Pulse 91 90 88 Oximetry 10/23/18 11:00 Temperature 97.7 F Pulse Rate 65 Respiratory 18 Rate Blood Pressure 110/55 (mmHg) O2 Sat by Pulse 92 Oximetry Oxygen Devices in Use Now: High Flow Nasal Cannula - 10L Appearance: Elderly male sitting in bed in NAD Eyes: No Scleral Icterus Ears/Nose/Mouth/Throat: Mucous Membranes Moist Neck: NL Appearance and Movements; NL JVP, Trachea Midline Respiratory: Symmetrical Chest Expansion and Respiratory Effort, Clear to Auscultation - Diminished Cardiovascular: NL Sounds; No Murmurs; No JVD, RRR Abdominal: NL Sounds; No Tenderness; No Distention Skin: No Rash or Ulcers Neurological: Alert and Oriented x 3 Lines/Tubes/Other Access: Clean, Dry and Intact Peripheral IV Nutrition: Taking PO's Result Diagrams: 10/22/18 06:38 10/22/18 06:38 Assess/Plan/Problems-Billing Assessment: Mr. Cooper is an 83 yo M with PMH of COPD, chronic dCHF, seizures, CAD with stents, HLD, venous insufficiency, and neuropathy; who was recently placed on home oxygen after hip replacement but subsequently stopped using the oxygen and he did not feel he needed it and now presents with hypoxia. - Patient Problems (1) Hypoxia Code(s): R09.02 - HYPOXEMIA Comment: - Secondary to advancing COPD - CTA negative for PE or pneumonia - Recently on 3L oxygen at home after hip repair (in [place]) but subsequently stopped as he did not feel he needed it any longer - Appreciate pulmonology consult - Will need home oxygen arranged, but unclear how much he will need - Titrate oxygen to maintain sat >88% (2) COPD (chronic obstructive pulmonary disease) Code(s): J44.9 - CHRONIC OBSTRUCTIVE PULMONARY DISEASE, UNSPECIFIED Comment: - No evidence of exacerbation or indication for steroids - Will need outpatient f/u with pulmonology - Continue Spiriva (started on admission), Dulera (3) Chronic diastolic congestive heart failure Code(s): I50.32 - CHRONIC DIASTOLIC (CONGESTIVE) HEART FAILURE Comment: - No evidence of exacerbation - Not on home medication - Daily weights (4) Seizure disorder Code(s): G40.909 - EPILEPSY, UNSP, NOT INTRACTABLE, WITHOUT STATUS EPILEPTICUS Comment: - Continue Tegretol (5) CAD (coronary artery disease) Code(s): I25.10 - ATHSCL HEART DISEASE OF [place] CORONARY ARTERY W/O ANG PCTRS Comment: - Continue aspirin, atorvastatin (6) Hyperlipidemia Code(s): E78.5 - HYPERLIPIDEMIA, UNSPECIFIED Comment: - Continue atorvastatin (7) Macrocytosis without anemia Code(s): D75.89 - OTHER SPECIFIED DISEASES OF BLOOD AND BLOOD-FORMING ORGANS Comment: - Chronic, MCV at baseline - Vitamin B and folic acid levels WNL - Continue vit B, folic acid (8) DVT prophylaxis Code(s): Z29.9 - ENCOUNTER FOR PROPHYLACTIC MEASURES, UNSPECIFIED Comment: - Lovenox (9) DNR (do not resuscitate) Comment: Status and Disposition: Observation. Will need home oxygen arranged prior to d/c. Attending: Lucho Thomson
[2018-10-23] MEDS: Atorvastatin* 10 MG TAB PO SCH (18:06)
[2018-10-23] MEDS ORDERED: Furosemide IV* 10 MG/ML 2 ML VIAL (20 MG) IV ONE (18:10)
--- NOTE | 2018-10-23 20:21 | CONS ---
PULMONARY CONSULTATION REPORT: DATE OF CONSULT: 10/23/18 CONSULTATION REQUESTED BY: Jeannie Love NP REASON FOR CONSULT: Evaluation of hypoxemic respiratory failure. HISTORY OF PRESENT ILLNESS: The patient is an 83-year-old male with history of COPD, significant emphysema, chronic diastolic heart failure, seizure disorder, coronary artery disease with stent placement, chronic lower extremity edema, thought to be secondary to venous insufficiency. The patient comes in for evaluation of worsening shortness of breath. The patient usually lives in [place] in the winter. He had a fall, broke his hip and had replacement. He was noted to be hypoxemic when he presented to the hospital. The patient was discharged home with O2 supplementation. He has also been home, returned back to [place] in September. He also had another injury following his hip surgery after recurrent fall and cracked 2 ribs. The patient has been having worsening shortness of breath in the past 2 to 3 weeks. Denies cough or sputum production. Denies recent cold or flu- like symptoms. He was found to be hypoxemic with O2 sat in the 70s on arrival in the ED. He was placed on O2 supplementation. He has been requiring O2 at around 4 L at rest and about 6 to 8 L with ambulation. The patient denies sick contacts. Denies significant cough. He has been noticing some wheezing and using albuterol inhaler. Denies abdominal pain, nausea, vomiting, diarrhea, urinary symptoms, or neurological issues. The patient is a former smoker, quit 30 years ago. 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 PAST MEDICAL HISTORY: 1. COPD. 2. Chronic diastolic heart failure. 3. Seizure disorder. 4. Coronary artery disease, 2 stents placed. 5. Dyslipidemia. 6. Chronic lower extremity edema. 7. Neuropathy. 8. Skin cancer. MEDICATIONS AT HOME: 1. Docusate sodium. 2. [place]-3. 3. Aspirin. 4. Vitamin B complex. 5. Folic acid. 6. Advair. 7. Atorvastatin. 8. Carbamazepine. ALLERGIES: No known drug allergies. FAMILY HISTORY: Mother with rheumatoid arthritis. Father with cancer. SOCIAL HISTORY: Former smoker, quit 30 years ago. Drinks 1 glass of wine. Denies drug abuse. REVIEW OF SYSTEMS: All 14 systems reviewed and as per HPI. PHYSICAL EXAM: The patient is in bed, in no apparent distress. Vital Signs: Temperature 98.4, pulse 66 beats per minute, respiratory rate 18 to 24 per minute, O2 sat 91% on 6 L, blood pressure 132/62. HEENT: Pupils equal, reactive to light. Mucous membranes moist. Lungs: Diminished air entry bilaterally. No wheezing. Crackles at bases. Cardiovascular: S1, S2 present, regular. Abdomen: Soft, nontender, nondistended. Bowel sounds present. Extremities: Normal range of motion. Neuro: Alert, awake, oriented x3. No focal deficits. Skin: Some bruises in the upper extremities. DIAGNOSTIC STUDIES/LAB DATA: WBC count 3.8, hemoglobin 13.5, hematocrit 39, platelet count 198. Sodium 137, potassium 4.0, chloride 108, bicarb 22, BUN 23 , creatinine 1.17. Chest x-ray on admission was personally reviewed by me - evidence of hyperinflation with interstitial opacities. CTA of the chest was also personally reviewed by me and with the patient and his at bedside - the patient with extensive emphysematous changes bilaterally. The patient with possible filling defects in second order pulmonary branches in the left upper lobe, unable to rule out if it is an artifact. Small bilateral pleural effusions, right greater than left. The patient with evidence of small hiatal hernia. Linear scarring in the right lung apex. Mild ground-glass densities bilaterally. IMPRESSION AND RECOMMENDATIONS: 83-year-old male with significant smoking history, prior occupational exposures, with evidence of extensive emphysematous changes in the lungs. The patient likely has hypoxemia from long time given significant emphysematous changes in his lungs. Probably, he was not previously diagnosed with hypoxemia. He also has chronic lower extremity edema. He has diastolic dysfunction. He does have small bilateral pleural effusions. There is question of possible filling defect in the left subsegmental pulmonary artery. However, given that we are not able to confirm that and given risk with frequent falls, unable to assess at this time. Probably weighing the risks and benefits at this point, the small clot in the lung might not be of a concern. He does appear to have chronic hypoxemia looking at his lung findings, which might have worsened acutely with likely pulmonary embolism or fluid overload into his lungs. We will order lower extremity Dopplers to rule out deep venous thrombosis. We will order small dose of Lasix. I had extensive discussion with the patient and at bedside regarding his hypoxemic condition and possibility of acute on chronic hypoxemic respiratory failure, likely from fluid overload or small pulmonary embolism. We will assess the response to diuresis. We would consider arterial blood gas if he continues to have significant hypoxemia to ascertain that it is not secondary to poor pulse oximetry reading. The patient appears to be congested in the nasal passages. Might benefit from OxyMask. Thank you for allowing me to participate in the care of your patient. TIME SPENT: Total time spent in assessing the patient, obtaining history and physical, physical exam at bedside and reviewing the imaging findings, pathophysiology of the shortness of breath and hypoxemic respiratory failure exceeded 60 minutes. [id number]/CPS #: [id number] MTDD
[2018-10-23] MEDS: Enoxaparin(*) 40 MG/0.4 ML SYR SUBCUT SCH (21:58)
[2018-10-24 06:17] LABS: ABS Eosinophils 0.2 10^3/ul (0-0.6); ABS Lymphocytes 0.5 10^3/ul (1.0-4.8); ABS Monocytes 0.8 10^3/ul (0-0.8); Eosinophil % 4.5 %; Hematocrit 44 % (42-52); Hemoglobin 14.7 g/dL (14.0-18.0); Lymphocyte % 11.2 %; Mean Corpuscular HGB Conc 34 g/dL (31-36); Mean Corpuscular Hemoglobin 36 pg (27-31); Mean Corpuscular Volume 107 fL (80-94); Mean Platelet Volume 8.3 fL (7.4-10.4); Nucleated Red Blood Cells % 0.1; Platelet Count 211 10^3/uL (150-450); Red Cell Distribution Width 14 % (10-15); White Blood Count 4.5 10^3/uL (3.5-10.8)
[2018-10-24] MEDS: OMEGA PO SCH (07:58)
[2018-10-24] MEDS: EPA PO SCH (07:58)
[2018-10-24] MEDS: FISH OIL PO SCH (07:58)
[2018-10-24] MEDS: DHA PO SCH (07:58)
[2018-10-24] MEDS: Docusate CAP* 100 MG PO SCH ×2 (08:08→19:57)
[2018-10-24] MEDS: Folic Acid TAB* 1 MG PO SCH (08:08)
[2018-10-24] MEDS: carBAMazepine ER TAB(*) 200 MG PO SCH ×2 (08:09→19:59)
[2018-10-24] MEDS: Aspirin EC TAB* 81 MG TAB.EC PO SCH (08:09)
[2018-10-24] MEDS: Vitamin B Complex TAB PO SCH (08:09)
[2018-10-24] MEDS: Polyethylene Glycol 3350* 17 GM PACKET PO SCH ×2 (08:09→19:57)
[2018-10-24] MEDS: Tiotropium CAP.INH* CAP.INH/18 MCG (USE ORDER SET !) INH SCH (08:40)
[2018-10-24] MEDS: Mometasone/Formoter 100/5 MDI INH SCH ×2 (08:42→19:32)
[2018-10-24] MEDS ORDERED: Saline NASAL SPRAY 0.65%* BTL BOTH NARES PRN (08:52)
--- NOTE | 2018-10-24 14:02 | PN ---
Subjective Date of Service: 10/24/18 Interval History: Mr. Cooper is feeling well today. He offers no complaints, but is anxious to go home. He does understand the need for continued hospitalization at this point. He was up to the bathroom, shaving at the sink, and denies any SOB on exertion. Denies CP, N/V, dizziness. No concerns from oxygen, though he is still requiring 8L to maintain sats at rest. Family History: Unchanged from Admission Social History: Unchanged from Admission Past Medical History: Unchanged from Admission Objective Active Medications: Acetaminophen (Tylenol Tab*) 650 mg PO Q4H PRN FEVER/PAIN Aspirin (Aspirin Ec Tab*) 81 mg PO DAILY DOREEN Atorvastatin Calcium (Lipitor*) 10 mg PO QPM DOREEN Carbamazepine (Tegretol Xr Tab(*)) 400 mg PO BID DOREEN Docusate Sodium (Colace Cap*) 100 mg PO BEDTIME DOREEN Docusate Sodium (Colace Cap*) 200 mg PO DAILY DOREEN Enoxaparin Sodium (Lovenox(*)) 40 mg SUBCUT Q24H DOREEN Folic Acid (Folvite Tab*) 1 mg PO DAILY DOREEN Mometasone Furoate/Formoterol Fumar (Dulera 100/5 Mdi*) 2 puff INH BID DOREEN ([place]-3/Dha/Epa/ (Fish Oil 1,000 Mg)) 1,000 mg PO DAILY DOREEN Ondansetron HCl (Zofran Inj*) 4 mg IV Q6H PRN NAUSEA/VOMITING Polyethylene Glycol/Electrolytes (Miralax*) 17 gm PO BID DOREEN Sodium Chloride (Sodium Chloride 0.65% Nasal [place]*) 1 spray BOTH NARES Q4H PRN CONGESTION Tiotropium [place] (Spiriva Cap.Inh*) 1 cap INH 0900 DOREEN Vitamin B Complex/Vitamin E (B Complex-50*) 1 tab PO DAILY DOREEN Vital Signs - 8 hr 10/24/18 10/24/18 10/24/18 08:00 08:15 08:43 Temperature 97.8 F Pulse Rate 65 73 Respiratory 22 16 Rate Blood Pressure 95/50 94/52 (mmHg) O2 Sat by Pulse 93 90 Oximetry 10/24/18 11:36 Temperature 97.6 F Pulse Rate 64 Respiratory 20 Rate Blood Pressure 106/53 (mmHg) O2 Sat by Pulse 95 Oximetry Oxygen Devices in Use Now: OxyMask - 8L Appearance: Elderly male sitting in bed in NAD Eyes: No Scleral Icterus Ears/Nose/Mouth/Throat: Mucous Membranes Moist Neck: NL Appearance and Movements; NL JVP, Trachea Midline Respiratory: Symmetrical Chest Expansion and Respiratory Effort, Clear to Auscultation Cardiovascular: NL Sounds; No Murmurs; No JVD, RRR Abdominal: NL Sounds; No Tenderness; No Distention Extremities: - - Mild nonpitting BLE Skin: No Rash or Ulcers Neurological: Alert and Oriented x 3, NL Gait Lines/Tubes/Other Access: Clean, Dry and Intact Peripheral IV Nutrition: Taking PO's Result Diagrams: 10/24/18 06:05 10/22/18 06:38 Assess/Plan/Problems-Billing Assessment: Mr. Cooper is an 83 yo M with PMH of COPD, chronic dCHF, seizures, CAD with stents, HLD, venous insufficiency, and neuropathy; who was recently placed on home oxygen after hip replacement but subsequently stopped using the oxygen and he did not feel he needed it and now presents with hypoxia. - Patient Problems (1) Hypoxia Code(s): R09.02 - HYPOXEMIA Comment: - Secondary to COPD - CTA negative for PE (there is a questionable filling defect, not conclusive for PE) or pneumonia - Recently on 3L oxygen at home after hip repair (in [place]) but subsequently stopped as he did not feel he needed it any longer - Appreciate pulmonology consult; recommends BLE US to r/o DVT, furosemide x1, ABG if continued hypoxia - BLE US negative for DVT, but the right saphenofemoral junction shows mild thickening which may reflect remote thrombus - ABG today shows normal pH, but low pO2 - Will need home oxygen arranged, but unclear how much he will need as he still has very high requirements at this point - Received furosemide x1 yesterday d/t concern for overload, though no significant improvement since then - Titrate oxygen to maintain sat >88% (2) COPD (chronic obstructive pulmonary disease) Code(s): J44.9 - CHRONIC OBSTRUCTIVE PULMONARY DISEASE, UNSPECIFIED Comment: - No evidence of exacerbation or indication for steroids - Will need outpatient f/u with pulmonology - Continue Spiriva (started on admission), Dulera (3) Chronic diastolic congestive heart failure Code(s): I50.32 - CHRONIC DIASTOLIC (CONGESTIVE) HEART FAILURE Comment: - No evidence of exacerbation - Not on home medication - Daily weights (4) Seizure disorder Code(s): G40.909 - EPILEPSY, UNSP, NOT INTRACTABLE, WITHOUT STATUS EPILEPTICUS Comment: - Continue Tegretol (5) CAD (coronary artery disease) Code(s): I25.10 - ATHSCL HEART DISEASE OF [place] CORONARY ARTERY W/O ANG PCTRS Comment: - Continue aspirin, atorvastatin (6) Hyperlipidemia Code(s): E78.5 - HYPERLIPIDEMIA, UNSPECIFIED Comment: - Continue atorvastatin (7) Macrocytosis without anemia Code(s): D75.89 - OTHER SPECIFIED DISEASES OF BLOOD AND BLOOD-FORMING ORGANS Comment: - Chronic, MCV at baseline - Vitamin B and folic acid levels WNL - Continue vit B, folic acid (8) DVT prophylaxis Code(s): Z29.9 - ENCOUNTER FOR PROPHYLACTIC MEASURES, UNSPECIFIED Comment: - Lovenox (9) DNR (do not resuscitate) Comment: Status and Disposition: Inpatient. Anticipate d/c home when medically stable, though unclear when that will be d/t continued hypoxia and high oxygen requirements. Attending: Rosemarie Javier
--- NOTE | 2018-10-24 17:04 | PN ---
Progress Note - Progress Note Date of Service: 10/24/18 - Pulm f/u note Note: Pt seen and examined at bedside. Pt reports feeling slightly better today, he is also in good spirit today. FiO2 requirement slightly down to 6L. WAs able to ambulate to restroom with O2 Active Medications Generic Name Dose Route Start Last Admin Trade Name Freq PRN Reason Stop Dose Admin Acetaminophen 650 mg 10/21/18 19:23 Tylenol Tab* PO Q4H PRN FEVER/PAIN Aspirin 81 mg 10/22/18 09:00 10/24/18 08:09 Aspirin Ec Tab* PO 81 mg DAILY DOREEN Administration Atorvastatin Calcium 10 mg 10/22/18 18:00 10/23/18 18:06 Lipitor* PO 10 mg QPM DOREEN Administration Carbamazepine 400 mg 10/21/18 22:00 10/24/18 08:09 Tegretol Xr Tab(*) PO 400 mg BID DOREEN Administration Docusate Sodium 100 mg 10/22/18 21:00 10/23/18 21:57 Colace Cap* PO 100 mg BEDTIME DOREEN Administration Docusate Sodium 200 mg 10/22/18 10:00 10/24/18 08:08 Colace Cap* PO 200 mg DAILY DOREEN Administration Enoxaparin Sodium 40 mg 10/21/18 20:00 10/23/18 21:58 Lovenox(*) SUBCUT 40 mg Q24H DOREEN Administration Folic Acid 1 mg 10/22/18 09:00 10/24/18 08:08 Folvite Tab* PO 1 mg DAILY DOREEN Administration Mometasone Furoate/Formoterol Fumar 2 puff 10/21/18 21:00 10/24/18 08:42 Dulera 100/5 Mdi* INH 2 puff BID DOREEN Administration ([place]-3/Dha/Epa/ 1,000 mg 10/22/18 09:00 10/24/18 07:58 Fish Oil 1,000 Mg) PO Not Given DAILY DOREEN Ondansetron HCl 4 mg 10/21/18 19:23 Zofran Inj* IV Q6H PRN NAUSEA/VOMITING Polyethylene Glycol/Electrolytes 17 gm 10/22/18 11:00 10/24/18 08:09 Miralax* PO 17 gm BID DOREEN Administration Sodium Chloride 1 spray 10/24/18 08:52 Sodium Chloride 0.65% Nasal [place]* BOTH NARES Q4H PRN CONGESTION Tiotropium [place] 1 cap 10/21/18 21:00 10/24/18 08:40 Spiriva Cap.Inh* INH 1 cap 0900 DOREEN Administration Vitamin B Complex/Vitamin E 1 tab 10/22/18 09:00 10/24/18 08:09 B Complex-50* PO 1 tab DAILY DOREEN Administration Vital Signs Temp Pulse Resp BP Pulse Ox 97.6 F 64 20 106/53 95 10/24/18 11:36 10/24/18 11:36 10/24/18 11:36 10/24/18 11:36 10/24/18 11:36 O/E: Pt in NAD HEENT: PERRLA, no JVD Lungs: Diminished air entry, crackles+ CVS: S1, S2+, regular Abd: Soft, BS+ Ext: Normal ROM Skin: No rash Neuro: No focal deficits Laboratory Results - last 24 hr 10/24/18 10/24/18 06:05 12:30 WBC 4.5 RBC 4.10 L Hgb 14.7 Hct 44 MCV 107 H MCH 36 H MCHC 34 RDW 14 Plt Count 211 MPV 8.3 Neut % (Auto) 65.2 Lymph % (Auto) 11.2 [place] % (Auto) 18.4 Eos % (Auto) 4.5 Baso % (Auto) 0.7 Absolute Neuts (auto) 3.0 Absolute Lymphs (auto) 0.5 L Absolute Monos (auto) 0.8 Absolute Eos (auto) 0.2 Absolute Basos (auto) 0.0 Absolute Nucleated RBC 0.0 Nucleated RBC % 0.1 Patient Temperature Not Reportable ABG pH 7.45 ABG pH (Temp Correct) Not Reportable ABG pCO2 34 L ABG pCO2 (Temp Corrct Not Reportable ABG pO2 63 L ABG pO2 (Temp Correct Not Reportable ABG HCO3 24.8 ABG O2 Saturation 92.7 L ABG Base Excess 0.1 Respiration Rate Not Reportable O2 Delivery Device oxymask 6lpm Ventilator Type Not Reportable Vent Mode Not Reportable FiO2 Not Reportable Inspiratory Time Not Reportable PEEP Not Reportable Pressure Support Not Reportable Pressure Control Not Reportable EPAP Not Reportable IPAP Not Reportable BiPAP Not Reportable venous duplex: No DVT however area of abnormality that might correspond to location of previous thrombus I/R: 83 yo M with PMH of COPD, chronic dCHF, seizures, CAD with stents, HLD, venous insufficiency, and neuropathy; who was recently placed on home oxygen after hip replacement but subsequently stopped using the oxygen and he did not feel he needed it and now presents with SOB, found to be hypoxic. Pt slightly improved after Lasix yesterday FiO2 requirement slightly down however still with significant hypoxia CTA didnot confirm PE however not able to r/o subsegmental PE Venous duplex didnot show acute DVT however shows area of abnormality that might correspond to previous DVT He was travelling long distance recently and was immobile He should still not be significantly hypoxic with small peripheral PE He does have signficant emphysematous/bullous changes His hypoxia might have been missed for long time and could be resulting in pulm HTN He is high risk for anticoagulation sec to h/o falls Will c/w low dose Lasix He doesnot need steroids I suspect he might not improve much and might continue to need higher FiO2 Will wait 1-2days and if no significant improvement might need palliative care
[2018-10-24] MEDS ORDERED: Furosemide IV* 10 MG/ML 2 ML VIAL (20 MG) IV ONE (17:37)
[2018-10-24] MEDS: predniSONE TAB* 20 MG PO SCH (18:38)
[2018-10-24] MEDS: Atorvastatin* 10 MG TAB PO SCH (18:38)
[2018-10-24] MEDS: Enoxaparin(*) 40 MG/0.4 ML SYR SUBCUT SCH (19:58)
[2018-10-25] MEDS: Tiotropium CAP.INH* CAP.INH/18 MCG (USE ORDER SET !) INH SCH (07:55)
[2018-10-25] MEDS: Mometasone/Formoter 100/5 MDI INH SCH ×2 (07:58→21:08)
[2018-10-25] MEDS: Aspirin EC TAB* 81 MG TAB.EC PO SCH (08:42)
[2018-10-25] MEDS: DHA PO SCH (08:42)
[2018-10-25] MEDS: Docusate CAP* 100 MG PO SCH ×2 (08:42→20:02)
[2018-10-25] MEDS: predniSONE TAB* 20 MG PO SCH (08:42)
[2018-10-25] MEDS: OMEGA PO SCH (08:42)
[2018-10-25] MEDS: EPA PO SCH (08:42)
[2018-10-25] MEDS: carBAMazepine ER TAB(*) 200 MG PO SCH ×2 (08:42→20:03)
[2018-10-25] MEDS: FISH OIL PO SCH (08:42)
[2018-10-25] MEDS: Polyethylene Glycol 3350* 17 GM PACKET PO SCH ×2 (08:42→20:02)
[2018-10-25] MEDS: Folic Acid TAB* 1 MG PO SCH (08:42)
[2018-10-25 08:55] LABS: BUN/Creatinine Ratio 21.2 (8-20); Calcium 9.3 mg/dL (8.6-10.3); EGFR African American 71.5 (>60); EGFR Non-African American 59.1 (>60); Potassium 4.5 mmol/L (3.5-5.0)
[2018-10-25] MEDS: Vitamin B Complex TAB PO SCH (09:12)
[2018-10-25] MEDS ORDERED: NS 0.9% 1000 ML** 1,000 ML IV SCH (09:45)
--- NOTE | 2018-10-25 15:40 | PN ---
Progress Note - Progress Note Date of Service: 10/25/18 - Pulm f/u note Note: Pt seen and examined at bedside. Pt reports feeling better today. Still requiring high FiO2. Denies cough, chest pain Active Medications Generic Name Dose Route Start Last Admin Trade Name Freq PRN Reason Stop Dose Admin Acetaminophen 650 mg 10/21/18 19:23 Tylenol Tab* PO Q4H PRN FEVER/PAIN Aspirin 81 mg 10/22/18 09:00 10/25/18 08:42 Aspirin Ec Tab* PO 81 mg DAILY DOREEN Administration Atorvastatin Calcium 10 mg 10/22/18 18:00 10/24/18 18:38 Lipitor* PO 10 mg QPM DOREEN Administration Carbamazepine 400 mg 10/21/18 22:00 10/25/18 08:42 Tegretol Xr Tab(*) PO 400 mg BID DOREEN Administration Docusate Sodium 100 mg 10/22/18 21:00 10/24/18 19:57 Colace Cap* PO Not Given BEDTIME DOREEN Docusate Sodium 200 mg 10/22/18 10:00 10/25/18 08:42 Colace Cap* PO 200 mg DAILY DOREEN Administration Enoxaparin Sodium 40 mg 10/21/18 20:00 10/24/18 19:58 Lovenox(*) SUBCUT 40 mg Q24H DOREEN Administration Folic Acid 1 mg 10/22/18 09:00 10/25/18 08:42 Folvite Tab* PO 1 mg DAILY DOREEN Administration Sodium Chloride 1,000 mls @ 75 mls/hr 10/25/18 09:45 10/25/18 10:00 Ns 0.9% 1000 Ml IV 75 mls/hr PER RATE DOREEN Administration Mometasone Furoate/Formoterol Fumar 2 puff 10/21/18 21:00 10/25/18 07:58 Dulera 100/5 Mdi* INH 2 puff BID DOREEN Administration ([place]-3/Dha/Epa/ 1,000 mg 10/22/18 09:00 10/25/18 08:42 Fish Oil 1,000 Mg) PO Not Given DAILY DOREEN Ondansetron HCl 4 mg 10/21/18 19:23 Zofran Inj* IV Q6H PRN NAUSEA/VOMITING Polyethylene Glycol/Electrolytes 17 gm 10/22/18 11:00 10/25/18 08:42 Miralax* PO 17 gm BID DOREEN Administration Prednisone 40 mg 10/24/18 18:00 10/25/18 08:42 Deltasone Tab* PO 40 mg DAILY DOREEN Administration Sodium Chloride 1 spray 10/24/18 08:52 10/24/18 20:22 Sodium Chloride 0.65% Nasal [place]* BOTH NARES 1 spray Q4H PRN Administration CONGESTION Tiotropium [place] 1 cap 10/21/18 21:00 10/25/18 07:55 Spiriva Cap.Inh* INH 1 cap 0900 DOREEN Administration Vitamin B Complex/Vitamin E 1 tab 10/22/18 09:00 10/25/18 09:12 B Complex-50* PO 1 tab DAILY DOREEN Administration Vital Signs Temp Pulse Resp BP Pulse Ox 98.1 F 74 20 111/56 95 10/25/18 15:41 10/25/18 15:41 10/25/18 15:41 10/25/18 15:41 10/25/18 15:41 O/E: Pt in NAD HEENT: PERRLA, no JVD Lungs: Diminished air entry, crackles+- improved CVS: S1, S2+, regular Abd: Soft, BS+ Ext: Normal ROM Skin: No rash Neuro: No focal deficits Laboratory Results - last 24 hr 10/25/18 08:16 Sodium 136 Potassium 4.5 Chloride 102 Carbon Dioxide 28 Anion Gap 6 BUN 25 H Creatinine 1.18 H Est GFR ( Amer) 71.5 Est GFR (Non-Af Amer) 59.1 BUN/Creatinine Ratio 21.2 H Glucose 119 H Calcium 9.3 Venous duplex: No DVT however area of abnormality that might correspond to location of previous thrombus I/R: 83 yo M with PMH of COPD, chronic dCHF, seizures, CAD with stents, HLD, venous insufficiency, and neuropathy; who was recently placed on home oxygen after hip replacement but subsequently stopped using the oxygen and he did not feel he needed it and now presents with SOB, found to be hypoxic. Pt slightly improved after Lasix and steroids clinically however FiO2 requirements remain same CTA didnot confirm PE however not able to r/o subsegmental PE Venous duplex didnot show acute DVT however shows area of abnormality that might correspond to previous DVT He was travelling long distance recently and was immobile He should still not be significantly hypoxic with small peripheral PE He does have significant emphysematous/bullous changes His hypoxia might have been missed for long time and could be resulting in pulm HTN He is high risk for anticoagulation sec to h/o falls Started on steroids for possible bronchospasm/ILD eventhough CT findings are not consistent with that Will c/w low dose Lasix I suspect he might not improve much and might continue to need higher FiO2, however hoping he would get better to point that it is safe for d/c Will wait 1-2days and if no significant improvement might need palliative care
[2018-10-25] MEDS: Atorvastatin* 10 MG TAB PO SCH (16:44)
--- NOTE | 2018-10-25 18:30 | PN ---
Subjective Date of Service: 10/25/18 Interval History: Patient feels like his breathing is improved today. Nursing attempted to decrease oxygen flow rate and O2 sat fell below 90%. Denies difficulty breathing at rest, but does feel short of breath with walking. Denies chest pain , abd pain, fever/chills, n/v/d. Family History: Unchanged from Admission Social History: Unchanged from Admission Past Medical History: Unchanged from Admission Objective Active Medications: Acetaminophen (Tylenol Tab*) 650 mg PO Q4H PRN PRN Reason: FEVER/PAIN Aspirin (Aspirin Ec Tab*) 81 mg PO DAILY [facility] Last Admin: 10/25/18 08:42 Dose: 81 mg Atorvastatin Calcium (Lipitor*) 10 mg PO QPM [facility] Last Admin: 10/25/18 16:44 Dose: 10 mg Carbamazepine (Tegretol Xr Tab(*)) 400 mg PO BID [facility] Last Admin: 10/25/18 08:42 Dose: 400 mg Docusate Sodium (Colace Cap*) 100 mg PO BEDTIME [facility] Last Admin: 10/24/18 19:57 Dose: Not Given Docusate Sodium (Colace Cap*) 200 mg PO DAILY [facility] Last Admin: 10/25/18 08:42 Dose: 200 mg Enoxaparin Sodium (Lovenox(*)) 40 mg SUBCUT Q24H [facility] Last Admin: 10/24/18 19:58 Dose: 40 mg Folic Acid (Folvite Tab*) 1 mg PO DAILY [facility] Last Admin: 10/25/18 08:42 Dose: 1 mg Sodium Chloride (Ns 0.9% 1000 Ml) 1,000 mls @ 75 mls/hr IV PER RATE [facility] Last Admin: 10/25/18 10:00 Dose: 75 mls/hr Mometasone Furoate/Formoterol Fumar (Dulera 100/5 Mdi*) 2 puff INH BID [facility] Last Admin: 10/25/18 07:58 Dose: 2 puff ([place]-3/Dha/Epa/ (Fish Oil 1,000 Mg)) 1,000 mg PO DAILY [facility] Last Admin: 10/25/18 08:42 Dose: Not Given Ondansetron HCl (Zofran Inj*) 4 mg IV Q6H PRN PRN Reason: NAUSEA/VOMITING Polyethylene Glycol/Electrolytes (Miralax*) 17 gm PO BID [facility] Last Admin: 10/25/18 08:42 Dose: 17 gm Prednisone (Deltasone Tab*) 40 mg PO DAILY [facility] Last Admin: 10/25/18 08:42 Dose: 40 mg Sodium Chloride (Sodium Chloride 0.65% Nasal [place]*) 1 spray BOTH NARES Q4H PRN PRN Reason: CONGESTION Last Admin: 10/24/18 20:22 Dose: 1 spray Tiotropium [place] (Spiriva Cap.Inh*) 1 cap INH 0900 [facility] Last Admin: 10/25/18 07:55 Dose: 1 cap Vitamin B Complex/Vitamin E (B Complex-50*) 1 tab PO DAILY [facility] Last Admin: 10/25/18 09:12 Dose: 1 tab Vital Signs - 8 hr 10/25/18 10/25/18 10/25/18 11:29 13:51 15:39 Temperature 97.5 F 98.1 F Pulse Rate 76 74 Respiratory 20 20 Rate Blood Pressure 96/39 111/56 (mmHg) O2 Sat by Pulse 92 82 95 Oximetry 10/25/18 10/25/18 15:40 15:41 Temperature 98.1 F Pulse Rate 74 Respiratory 20 Rate Blood Pressure 111/56 (mmHg) O2 Sat by Pulse 95 95 Oximetry Oxygen Devices in Use Now: Nasal Cannula Appearance: Thin, elderly white male laying upright in hospital bed appearing in NAD Eyes: No Scleral Icterus, PERRLA Ears/Nose/Mouth/Throat: Mucous Membranes Moist Neck: NL Appearance and Movements; NL JVP Respiratory: Symmetrical Chest Expansion and Respiratory Effort, Clear to Auscultation, - - Minimally diminished air sounds bilaterally Cardiovascular: NL Sounds; No Murmurs; No JVD, RRR Abdominal: NL Sounds; No Tenderness; No Distention Extremities: No Edema, No Clubbing, Cyanosis Skin: No Rash or Ulcers Neurological: Alert and Oriented x 3, NL Muscle Strength and Tone Result Diagrams: 10/24/18 06:05 10/25/18 08:16 Assess/Plan/Problems-Billing Assessment: Mr. Cooper is an 83 yo M with PMH of COPD, chronic dCHF, seizures, CAD with stents, HLD, venous insufficiency, and neuropathy; who was recently placed on home oxygen after hip replacement but subsequently stopped using the oxygen as he did not feel he needed it and now presents with hypoxia. - Patient Problems (1) Hypotension Comment: -patient hypotensive with SBP in 90s on multiple reads -started NS at 75ml/hr, will discontinue after 1L given -possibly related to lasix (2) Acute respiratory failure with hypoxia Code(s): J96.01 - ACUTE RESPIRATORY FAILURE WITH HYPOXIA SNOMED Code(s): 74697917 Comment: -significant hypoxia with possibility of longstanding hypoxia that was missed, possibility of subsegmental PE but low likelihood -known diastolic CHF which may be contributing, but possibly progression of COPD -will continue to attempt to wean O2 to FiO2>90%; currently at 8L NC -Dr. Guillen recommends against steroids, will d/c prednisone -ordered flutter valve -discontinuing lasix in setting of hypotension -continue home spiriva and LABA/inhaled steroid -discussed consult to palliative care, will likely consult tomorrow (3) CAD (coronary artery disease) Code(s): I25.10 - ATHSCL HEART DISEASE OF [place] CORONARY ARTERY W/O ANG PCTRS SNOMED Code(s): 35502769 Comment: - Continue aspirin, atorvastatin (4) Chronic diastolic congestive heart failure Code(s): I50.32 - CHRONIC DIASTOLIC (CONGESTIVE) HEART FAILURE SNOMED Code(s) : 402531564 Comment: - Not on home medication - Daily weights - discontinuing lasix in setting of hypotension (5) Seizure disorder Code(s): G40.909 - EPILEPSY, UNSP, NOT INTRACTABLE, WITHOUT STATUS EPILEPTICUS SNOMED Code(s): 742168113 Comment: - Continue Tegretol (6) Hyperlipidemia Code(s): E78.5 - HYPERLIPIDEMIA, UNSPECIFIED SNOMED Code(s): 50442723 Comment: - Continue atorvastatin (7) Macrocytosis without anemia Code(s): D75.89 - OTHER SPECIFIED DISEASES OF BLOOD AND BLOOD-FORMING ORGANS SNOMED Code(s): 218030409 Comment: - Chronic, MCV at baseline - Vitamin B and folic acid levels WNL - Continue vit B, folic acid (8) DVT prophylaxis Code(s): Z29.9 - ENCOUNTER FOR PROPHYLACTIC MEASURES, UNSPECIFIED SNOMED Code( s): 460640092 Comment: - Lovenox (9) DNR (do not resuscitate) Comment: Status and Disposition: Inpatient. Anticipate d/c home when medically stable, though unclear when that will be d/t continued hypoxia and high oxygen requirements.
[2018-10-25] MEDS: Enoxaparin(*) 40 MG/0.4 ML SYR SUBCUT SCH (20:02)
[2018-10-26] MEDS ORDERED: Furosemide TAB* 20 MG PO SCH (09:00)
[2018-10-26] MEDS: carBAMazepine ER TAB(*) 200 MG PO SCH ×2 (09:14→21:08)
[2018-10-26] MEDS: Vitamin B Complex TAB PO SCH (09:14)
[2018-10-26] MEDS: Aspirin EC TAB* 81 MG TAB.EC PO SCH (09:14)
[2018-10-26] MEDS: Docusate CAP* 100 MG PO SCH ×2 (09:14→21:02)
[2018-10-26] MEDS: Polyethylene Glycol 3350* 17 GM PACKET PO SCH ×3 (09:14→21:02)
[2018-10-26] MEDS: Folic Acid TAB* 1 MG PO SCH (09:16)
[2018-10-26] MEDS: Tiotropium CAP.INH* CAP.INH/18 MCG (USE ORDER SET !) INH SCH (09:27)
[2018-10-26] MEDS: Mometasone/Formoter 100/5 MDI INH SCH ×2 (09:27→19:32)
[2018-10-26] MEDS: CMC:OMEGA-3 FATTY ACIDS (NF) 1,000 MG CAP PO SCH (11:38)
--- NOTE | 2018-10-26 11:43 | PN ---
Subjective Date of Service: 10/26/18 Interval History: Patient feeling unchanged from yesterday. His breathing is comfortable at rest and his cough is unchanged. Denies fever/chills, SOB, chest pain, abd pain. Family History: Unchanged from Admission Social History: Unchanged from Admission Past Medical History: Unchanged from Admission Objective Active Medications: Acetaminophen (Tylenol Tab*) 650 mg PO Q4H PRN PRN Reason: FEVER/PAIN Aspirin (Aspirin Ec Tab*) 81 mg PO DAILY [facility] Last Admin: 10/26/18 09:14 Dose: 81 mg Atorvastatin Calcium (Lipitor*) 10 mg PO QPM [facility] Last Admin: 10/25/18 16:44 Dose: 10 mg Carbamazepine (Tegretol Xr Tab(*)) 400 mg PO BID [facility] Last Admin: 10/26/18 09:14 Dose: 400 mg Docusate Sodium (Colace Cap*) 100 mg PO BEDTIME [facility] Last Admin: 10/25/18 20:02 Dose: Not Given Docusate Sodium (Colace Cap*) 200 mg PO DAILY [facility] Last Admin: 10/26/18 09:14 Dose: 200 mg Enoxaparin Sodium (Lovenox(*)) 40 mg SUBCUT Q24H [facility] Last Admin: 10/25/18 20:02 Dose: 40 mg Fish Oil (Fish Oil (Nf)) 1,000 mg PO DAILY [facility] Last Admin: 10/26/18 11:38 Dose: Not Given Folic Acid (Folvite Tab*) 1 mg PO DAILY [facility] Last Admin: 10/26/18 09:16 Dose: 1 mg Mometasone Furoate/Formoterol Fumar (Dulera 100/5 Mdi*) 2 puff INH BID [facility] Last Admin: 10/26/18 09:27 Dose: 2 puff Ondansetron HCl (Zofran Inj*) 4 mg IV Q6H PRN PRN Reason: NAUSEA/VOMITING Polyethylene Glycol/Electrolytes (Miralax*) 17 gm PO BID [facility] Last Admin: 10/26/18 09:16 Dose: Not Given Sodium Chloride (Sodium Chloride 0.65% Nasal [place]*) 1 spray BOTH NARES Q4H PRN PRN Reason: CONGESTION Last Admin: 10/24/18 20:22 Dose: 1 spray Tiotropium [place] (Spiriva Cap.Inh*) 1 cap INH 0900 [facility] Last Admin: 10/26/18 09:27 Dose: 1 cap Vitamin B Complex/Vitamin E (B Complex-50*) 1 tab PO DAILY [facility] Last Admin: 10/26/18 09:14 Dose: 1 tab Vital Signs - 8 hr 10/26/18 10/26/18 10/26/18 06:25 08:00 09:22 Temperature 97.5 F Pulse Rate 78 Respiratory 18 20 Rate Blood Pressure 120/89 (mmHg) O2 Sat by Pulse 100 91 Oximetry 10/26/18 10/26/18 09:23 09:33 Temperature Pulse Rate 75 Respiratory 20 15 Rate Blood Pressure (mmHg) O2 Sat by Pulse 91 Oximetry Oxygen Devices in Use Now: Nasal Cannula Appearance: Thin, elderly white male laying upright in hospital bed, appearing in NAD, at bedside Eyes: No Scleral Icterus, PERRLA Ears/Nose/Mouth/Throat: Mucous Membranes Moist Neck: NL Appearance and Movements; NL JVP Respiratory: Symmetrical Chest Expansion and Respiratory Effort, Clear to Auscultation, - - Improved lung sounds Cardiovascular: NL Sounds; No Murmurs; No JVD, RRR Abdominal: - - abdomen soft, nontender, nondistended Extremities: No Edema, No Clubbing, Cyanosis Skin: No Rash or Ulcers Neurological: Alert and Oriented x 3, NL Muscle Strength and Tone Result Diagrams: 10/24/18 06:05 10/25/18 08:16 Assess/Plan/Problems-Billing Assessment: Mr. Cooper is an 83 yo M with PMH of COPD, chronic dCHF, seizures, CAD with stents, HLD, venous insufficiency, and neuropathy; who was recently placed on home oxygen after hip replacement but subsequently stopped using the oxygen as he did not feel he needed it and now presents with hypoxia. - Patient Problems (1) Hypotension Comment: -patient hypotensive with SBP in 90s on multiple reads yesterday, normotensive today -possibly related to lasix -resolved after IVF, discontinuing NS (2) Acute respiratory failure with hypoxia Code(s): J96.01 - ACUTE RESPIRATORY FAILURE WITH HYPOXIA SNOMED Code(s): 88497614 Comment: -significant hypoxia with possibility of longstanding hypoxia that was missed, possibility of subsegmental PE but low likelihood -known diastolic CHF which may be contributing, but possibly progression of COPD -Dr. Guillen recommends against steroids, will d/c prednisone -continue flutter valve, home spiriva and LABA/inhaled steroid -oxygen requirement at rest improved today (8L ->5L), 5L with good saturation with ambulation as well -placed consult to palliative medicine given slow improvement of oxygen requirement up until this point (3) Chronic diastolic congestive heart failure Code(s): I50.32 - CHRONIC DIASTOLIC (CONGESTIVE) HEART FAILURE SNOMED Code(s) : 735693385 Comment: - Not on home medication - Daily weights - discontinuing lasix in setting of hypotension yesterday, will continue to monitor - patient may benefit from every other day low dose lasix dosing in future (4) CAD (coronary artery disease) Code(s): I25.10 - ATHSCL HEART DISEASE OF [place] CORONARY ARTERY W/O ANG PCTRS SNOMED Code(s): 04214712 Comment: - Continue aspirin, atorvastatin (5) Seizure disorder Code(s): G40.909 - EPILEPSY, UNSP, NOT INTRACTABLE, WITHOUT STATUS EPILEPTICUS SNOMED Code(s): 247773386 Comment: - Continue Tegretol (6) Hyperlipidemia Code(s): E78.5 - HYPERLIPIDEMIA, UNSPECIFIED SNOMED Code(s): 26511931 Comment: - Continue atorvastatin (7) Macrocytosis without anemia Code(s): D75.89 - OTHER SPECIFIED DISEASES OF BLOOD AND BLOOD-FORMING ORGANS SNOMED Code(s): 680235828 Comment: - Chronic, MCV at baseline - Vitamin B and folic acid levels WNL - Continue vit B, folic acid (8) DVT prophylaxis Code(s): Z29.9 - ENCOUNTER FOR PROPHYLACTIC MEASURES, UNSPECIFIED SNOMED Code( s): 286182742 Comment: - Lovenox (9) DNR (do not resuscitate) Comment: Status and Disposition: Inpatient. Anticipate d/c home when medically stable, though unclear when that will be d/t continued hypoxia and high oxygen requirements.
--- NOTE | 2018-10-26 16:07 | CONSULT ---
Palliative / Hospice Consult Ordering Provider: Marisela Finnegan - PCPGeorgi Referal Reason: After hospitalization care discussion - Subjective Code Status: DNR Advance Directives Location: In Chart MOLST Part A Completed: Yes - on chart MOLST Part E Completed:: Yes - on chart - History or Present Illness History or Present Illness: 83 yo male presented to ER with SOB. PMH is significant for COPD, chronic diastolic heart failure, seizure disorder, CAD with 2 stents, hypercholesterolemia, chronic lower leg edema and neuropathy. 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 Studies CXR-COPD, Ekg-NSR, CTA no PE small bilateral pleural effusions, doppler no DVT, H/H 14.7/44, BUN/Cr 25/1.18, egfr 59.1, tprot 6.7 and alb 3.5. Pt had hospitalization 06/2018 for hip fx went to rehab and was discharged on oxygen but was able to wean off the O2. All history is from pt, family and medical record. Pt was admitted with acute on chronic hypoxic respiratory failure and fluid overload secondary to R sided hrt failure. Lab Values: Laboratory Last Values WBC 4.5 10^3/uL (3.5-10.8) 10/24/18 06:05 RBC 4.10 10^6 /uL (4.18-5.48) L 10/24/18 06:05 Hgb 14.7 g/dL (14.0-18.0) 10/24/18 06:05 Hct 44 % (42-52) 10/24/18 06:05 MCV 107 fL (80-94) H 10/24/18 06:05 MCH 36 pg (27-31) H 10/24/18 06:05 MCHC 34 g/dL (31-36) 10/24/18 06:05 RDW 14 % (10-15) 10/24/18 06:05 Plt Count 211 10^3/uL (150-450) 10/24/18 06:05 MPV 8.3 fL (7.4-10.4) 10/24/18 06:05 Neut % (Auto) 65.2 % 10/24/18 06:05 Lymph % (Auto) 11.2 % 10/24/18 06:05 [place] % (Auto) 18.4 % 10/24/18 06:05 Eos % (Auto) 4.5 % 10/24/18 06:05 Baso % (Auto) 0.7 % 10/24/18 06:05 Absolute Neuts (auto) 3.0 10^3/ul (1.5-7.7) 10/24/18 06:05 Absolute Lymphs (auto) 0.5 10^3/ul (1.0-4.8) L 10/24/18 06:05 Absolute Monos (auto) 0.8 10^3/ul (0-0.8) 10/24/18 06:05 Absolute Eos (auto) 0.2 10^3/ul (0-0.6) 10/24/18 06:05 Absolute Basos (auto) 0.0 10^3/ul (0-0.2) 10/24/18 06:05 Absolute Nucleated RBC 0.0 10^3/ul 10/24/18 06:05 Nucleated RBC % 0.1 10/24/18 06:05 D-Dimer, Quantitative 260 ng/mL (Less Than 230) H 10/21/18 16:22 Patient Temperature Not Reportable 10/24/18 12:30 ABG pH 7.45 (7.35-7.45) 10/24/18 12:30 ABG pH (Temp Correct) Not Reportable 10/24/18 12:30 ABG pCO2 34 mmHg (35-45) L 10/24/18 12:30 ABG pCO2 (Temp Corrct Not Reportable 10/24/18 12:30 ABG pO2 63 mmHg (80-100) L 10/24/18 12:30 ABG pO2 (Temp Correct Not Reportable 10/24/18 12:30 ABG HCO3 24.8 mmol/L (19-31) 10/24/18 12:30 ABG O2 Saturation 92.7 % (94.0-98.0) L 10/24/18 12:30 ABG Base Excess 0.1 mmol/L (-2.0-2.0) 10/24/18 12:30 Respiration Rate Not Reportable 10/24/18 12:30 O2 Delivery Device oxymask 6lpm 10/24/18 12:30 Ventilator Type Not Reportable 10/24/18 12:30 Vent Mode Not Reportable 10/24/18 12:30 FiO2 Not Reportable 10/24/18 12:30 Inspiratory Time Not Reportable 10/24/18 12:30 PEEP Not Reportable 10/24/18 12:30 Pressure Support Not Reportable 10/24/18 12:30 Pressure Control Not Reportable 10/24/18 12:30 EPAP Not Reportable 10/24/18 12:30 IPAP Not Reportable 10/24/18 12:30 BiPAP Not Reportable 10/24/18 12:30 Sodium 136 mmol/L (135-145) 10/25/18 08:16 Potassium 4.5 mmol/L (3.5-5.0) 10/25/18 08:16 Chloride 102 mmol/L (101-111) 10/25/18 08:16 Carbon Dioxide 28 mmol/L (22-32) 10/25/18 08:16 Anion Gap 6 mmol/L (2-11) 10/25/18 08:16 BUN 25 mg/dL (6-24) H 10/25/18 08:16 Creatinine 1.18 mg/dL (0.67-1.17) H 10/25/18 08:16 Est GFR ( Amer) 71.5 (>60) 10/25/18 08:16 Est GFR (Non-Af Amer) 59.1 (>60) 10/25/18 08:16 BUN/Creatinine Ratio 21.2 (8-20) H 10/25/18 08:16 Glucose 119 mg/dL (70-100) H 10/25/18 08:16 Calcium 9.3 mg/dL (8.6-10.3) 10/25/18 08:16 Total Bilirubin 0.40 mg/dL (0.2-1.0) 10/21/18 16:22 AST 25 U/L (13-39) 10/21/18 16:22 ALT 23 U/L (7-52) 10/21/18 16:22 Alkaline Phosphatase 109 U/L (34-104) H 10/21/18 16:22 Troponin I 0.01 ng/mL (<0.04) 10/21/18 16:22 B-Natriuretic Peptide 63 pg/mL (<=100) 10/21/18 16:22 Total Protein 6.7 g/dL (6.4-8.9) 10/21/18 16:22 Albumin 3.5 g/dL (3.2-5.2) 10/21/18 16:22 Globulin 3.2 g/dL (2-4) 10/21/18 16:22 Albumin/Globulin Ratio 1.1 (1-3) 10/21/18 16:22 Vitamin B12 749 pg/mL (180-914) 10/22/18 06:38 Folate > 20.00 ng/mL (>3.99) 10/22/18 06:38 - Objective Active Medications: Acetaminophen (Tylenol Tab*) 650 mg PO Q4H PRN PRN Reason: FEVER/PAIN Aspirin (Aspirin Ec Tab*) 81 mg PO DAILY [facility] Last Admin: 10/26/18 09:14 Dose: 81 mg Atorvastatin Calcium (Lipitor*) 10 mg PO QPM [facility] Last Admin: 10/25/18 16:44 Dose: 10 mg Carbamazepine (Tegretol Xr Tab(*)) 400 mg PO BID [facility] Last Admin: 10/26/18 09:14 Dose: 400 mg Docusate Sodium (Colace Cap*) 100 mg PO BEDTIME [facility] Last Admin: 10/25/18 20:02 Dose: Not Given Docusate Sodium (Colace Cap*) 200 mg PO DAILY [facility] Last Admin: 10/26/18 09:14 Dose: 200 mg Enoxaparin Sodium (Lovenox(*)) 40 mg SUBCUT Q24H [facility] Last Admin: 10/25/18 20:02 Dose: 40 mg Fish Oil (Fish Oil (Nf)) 1,000 mg PO DAILY [facility] Last Admin: 10/26/18 11:38 Dose: Not Given Folic Acid (Folvite Tab*) 1 mg PO DAILY [facility] Last Admin: 10/26/18 09:16 Dose: 1 mg Mometasone Furoate/Formoterol Fumar (Dulera 100/5 Mdi*) 2 puff INH BID [facility] Last Admin: 10/26/18 09:27 Dose: 2 puff Ondansetron HCl (Zofran Inj*) 4 mg IV Q6H PRN PRN Reason: NAUSEA/VOMITING Polyethylene Glycol/Electrolytes (Miralax*) 17 gm PO BID [facility] Last Admin: 06/20/19 09:16 Dose: Not Given Sodium Chloride (Sodium Chloride 0.65% Nasal [place]*) 1 spray BOTH NARES Q4H PRN PRN Reason: CONGESTION Last Admin: 10/24/18 20:22 Dose: 1 spray Tiotropium [place] (Spiriva Cap.Inh*) 1 cap INH 0900 [facility] Last Admin: 10/26/18 09:27 Dose: 1 cap Vitamin B Complex/Vitamin E (B Complex-50*) 1 tab PO DAILY [facility] Last Admin: 10/26/18 09:14 Dose: 1 tab Vital Signs: Vital Signs: Temp Pulse Resp BP Pulse Ox 97.5 F 64 18 123/64 85 10/26/18 12:39 10/26/18 12:39 10/26/18 12:39 10/26/18 12:39 10/26/18 14:05 Patient Weight: Weight 69.626 kg Intake and Output: Intake & Output 10/24/18 10/25/18 10/26/18 10/27/18 06:59 06:59 06:59 06:59 Intake Total 1060 1550 3408 1010 Output Total 2350 1800 175 640 Balance -1290 -250 3233 370 Weight 68.294 kg 69.626 kg Intake: IV Fluids 1118 410 NS (0.9%) 1118 410 Oral 1060 1550 2290 600 Output: Urine 2350 1800 175 640 Other: # Bowel Movements 0 # Voids 1 ADLs: Meal Record Start: 10/21/18 19: 41 Freq: DAILY@0900,1400,1800 Status: Active Protocol: Created 10/21/18 19:41 System (Rec: 10/21/18 19:41 System [id number]) Document 10/22/18 09:00 [id number] (Rec: 10/22/18 09:59 [id number] MED-C11) Document 10/22/18 13:49 [id number] (Rec: 10/22/18 13:49 [id number] MED-C09) Document 10/22/18 18:00 [id number] (Rec: 10/22/18 18:09 [id number] MED-C11) Document 10/23/18 09:00 [id number] (Rec: 10/23/18 09:51 [id number] MED-C11) Document 10/23/18 13:01 [id number] (Rec: 10/23/18 13:01 [id number] MED-C11) Document 10/23/18 18:00 [id number] (Rec: 10/23/18 22:14 [id number] MED-C04) Document 10/24/18 09:00 [id number] (Rec: 10/24/18 15:36 [id number] MED-C11) Document 10/24/18 14:00 [id number] (Rec: 10/24/18 15:37 [id number] MED-C11) Document 10/24/18 18:00 [id number] (Rec: 10/24/18 19:09 [id number] MED-C11) Document 10/25/18 09:00 [id number] (Rec: 10/25/18 09:37 [id number] MED-C09) Document 10/25/18 13:26 [id number] (Rec: 10/25/18 13:26 [id number] MED-C11) Document 10/25/18 18:00 [id number] (Rec: 10/25/18 19:22 [id number] MED-C11) Document 10/26/18 09:00 [id number] (Rec: 10/26/18 10:42 [id number] MED-C09) Document 10/26/18 14:08 [id number] (Rec: 10/26/18 14:08 [id number] MED-M16) Intake and Output Start: 10/21/18 16: 02 Freq: Status: Complete Protocol: Created 10/21/18 16:02 System (Rec: 10/21/18 16:02 System ED-C24) Intake and Output Start: 10/21/18 19: 41 Freq: DAILY@0600,1400,2200 Status: Active Protocol: Created 10/21/18 19:41 System (Rec: 10/21/18 19:41 System [id number]) Document 10/21/18 22:00 [id number] (Rec: 10/21/18 22:06 [id number] MED-C09) Document 10/22/18 05:05 [id number] (Rec: 10/22/18 05:06 [id number] MED-C09) Document 10/22/18 14:00 [id number] (Rec: 10/22/18 15:02 [id number] MED-C11) Document 10/22/18 22:00 [id number] (Rec: 10/22/18 22:26 [id number] MED-C13) Document 10/23/18 05:57 [id number] (Rec: 10/23/18 05:58 [id number] MED-C04) Document 10/23/18 08:10 [id number] (Rec: 10/23/18 08:10 [id number] MED-C11) Document 10/23/18 22:00 [id number] (Rec: 10/23/18 22:26 [id number] MED-C16) Document 10/24/18 05:50 [id number] (Rec: 10/24/18 05:51 [id number] MED-C11) Document 10/24/18 14:00 [id number] (Rec: 10/24/18 15:38 [id number] MED-C11) Document 10/24/18 17:01 [id number] (Rec: 10/24/18 17:01 [id number] MED-C11) Document 10/24/18 22:00 [id number] (Rec: 10/24/18 22:01 ZWC9072 MED-C02) Document 10/25/18 05:44 [id number] (Rec: 10/25/18 05:45 [id number] MED-C15) Document 10/25/18 11:52 [id number] (Rec: 10/25/18 11:52 [id number] MED-C04) Document 10/25/18 18:00 [id number] (Rec: 10/25/18 19:22 [id number] MED-C11) Document 10/25/18 22:00 IYR2365 (Rec: 10/25/18 22:31 [id number] MED-C07) Document 10/26/18 09:21 [id number] (Rec: 10/26/18 09:22 [id number] MED-M16) Document 10/26/18 14:07 [id number] (Rec: 10/26/18 14:07 [id number] MED-M16) Eyes: No Scleral Icterus, PERRLA Ears/Nose/Mouth/Throat: Mucous Membranes Moist Neck: NL Appearance and Movements; NL JVP Cardiovascular: NL Sounds; No Murmurs; No JVD, RRR Abdominal: - - abdomen soft, nontender, nondistended Extremities: No Edema, No Clubbing, Cyanosis Neurological: Alert and Oriented x 3, NL Muscle Strength and Tone - Assessment Assessment: 83 yo male with COPD and diastolic heart failure eligible for out patient palliative care - Plan Consult Plan (MU): Palliative Plan: Long discussion with pt, his and their daughter regarding care when they leave the hospital. Pt and family have questions regarding home O2 use which I referred to case management. Gave family a brochure about outpatient palliative care and how it works. I recommended [facility] because he is going to have some PT at home. Pt is eligible for outpatient palliative care due to COPD. KPS 60% PPS 70% - Time On Unit Date of Evaluation: 10/26/18 Hospice Consult Time in: 13:00 Hospice Consult Time Out: 14:30 Hospice Consult Time Total: 90 > 50% of Time Spend In Counseling or Coordinating Care: Yes
--- NOTE | 2018-10-26 16:24 | PN ---
Progress Note - Progress Note Date of Service: 10/26/18 - Pulm f/u note Note: Pt seen and examined at bedside. Pt reports feeling better which reflects in FiO2 requirements. Active Medications Generic Name Dose Route Start Last Admin Trade Name Freq PRN Reason Stop Dose Admin Acetaminophen 650 mg 10/21/18 19:23 Tylenol Tab* PO Q4H PRN FEVER/PAIN Aspirin 81 mg 10/22/18 09:00 10/26/18 09:14 Aspirin Ec Tab* PO 81 mg DAILY DOREEN Administration Atorvastatin Calcium 10 mg 10/22/18 18:00 10/25/18 16:44 Lipitor* PO 10 mg QPM DOREEN Administration Carbamazepine 400 mg 10/21/18 22:00 10/26/18 09:14 Tegretol Xr Tab(*) PO 400 mg BID DOREEN Administration Docusate Sodium 100 mg 10/22/18 21:00 10/25/18 20:02 Colace Cap* PO Not Given BEDTIME DOREEN Docusate Sodium 200 mg 10/22/18 10:00 10/26/18 09:14 Colace Cap* PO 200 mg DAILY DOREEN Administration Enoxaparin Sodium 40 mg 10/21/18 20:00 10/25/18 20:02 Lovenox(*) SUBCUT 40 mg Q24H DOREEN Administration Fish Oil 1,000 mg 10/26/18 09:00 10/26/18 11:38 Fish Oil (Nf) PO Not Given DAILY DOREEN Folic Acid 1 mg 10/22/18 09:00 10/26/18 09:16 Folvite Tab* PO 1 mg DAILY DOREEN Administration Mometasone Furoate/Formoterol Fumar 2 puff 10/21/18 21:00 10/26/18 09:27 Dulera 100/5 Mdi* INH 2 puff BID DOREEN Administration Ondansetron HCl 4 mg 10/21/18 19:23 Zofran Inj* IV Q6H PRN NAUSEA/VOMITING Polyethylene Glycol/Electrolytes 17 gm 10/22/18 11:00 10/26/18 09:16 Miralax* PO Not Given BID DOREEN Sodium Chloride 1 spray 10/24/18 08:52 10/24/18 20:22 Sodium Chloride 0.65% Nasal [place]* BOTH NARES 1 spray Q4H PRN Administration CONGESTION Tiotropium [place] 1 cap 10/21/18 21:00 10/26/18 09:27 Spiriva Cap.Inh* INH 1 cap 0900 DOREEN Administration Vitamin B Complex/Vitamin E 1 tab 10/22/18 09:00 10/26/18 09:14 B Complex-50* PO 1 tab DAILY DOREEN Administration Vital Signs Temp Pulse Resp BP Pulse Ox 97.5 F 64 18 123/64 85 10/26/18 12:39 10/26/18 12:39 10/26/18 12:39 10/26/18 12:39 10/26/18 14:05 O/E: Pt in NAD HEENT: PERRLA, no JVD Lungs: Diminished air entry, crackles+, no wheeze CVS: S1, S2+, regular Abd: Soft, BS+ Ext: NOrmal ROM Skin: NO rash Neuro: No focal deficits Labs: No new labs Venous duplex: No DVT however area of abnormality that might correspond to location of previous thrombus I/R: 83 yo M with PMH of COPD, chronic dCHF, seizures, CAD with stents, HLD, venous insufficiency, and neuropathy; who was recently placed on home oxygen after hip replacement but subsequently stopped using the oxygen and he did not feel he needed it and now presents with SOB, found to be hypoxic. 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
[2018-10-26] MEDS: Atorvastatin* 10 MG TAB PO SCH (18:49)
[2018-10-26] MEDS: Enoxaparin(*) 40 MG/0.4 ML SYR SUBCUT SCH (21:07)
[2018-10-27] MEDS: Tiotropium CAP.INH* CAP.INH/18 MCG (USE ORDER SET !) INH SCH (08:27)
[2018-10-27] MEDS: Mometasone/Formoter 100/5 MDI INH SCH (08:27)
[2018-10-27] MEDS: Vitamin B Complex TAB PO SCH (08:50)
[2018-10-27] MEDS: CMC:OMEGA-3 FATTY ACIDS (NF) 1,000 MG CAP PO SCH (08:50)
[2018-10-27] MEDS: Aspirin EC TAB* 81 MG TAB.EC PO SCH (08:50)
[2018-10-27] MEDS: carBAMazepine ER TAB(*) 200 MG PO SCH (08:50)
[2018-10-27] MEDS: Folic Acid TAB* 1 MG PO SCH (08:50)
[2018-10-27] MEDS: Docusate CAP* 100 MG PO SCH (08:50)
[2018-10-27] MEDS: Polyethylene Glycol 3350* 17 GM PACKET PO SCH (09:29)
[2018-10-27] MEDS ORDERED: Furosemide TAB* 20 MG PO ONE (09:45)
[2018-10-27 13:11] VITALS: BP 129/57
--- NOTE | 2018-10-27 13:48 | PN ---
Progress Note - Progress Note Date of Service: 10/27/18 - Pulm f/u note Note: Pt seen and examined at bedside. Pt reports feeling better. Active Medications Generic Name Dose Route Start Last Admin Trade Name Freq PRN Reason Stop Dose Admin Acetaminophen 650 mg 10/21/18 19:23 Tylenol Tab* PO Q4H PRN FEVER/PAIN Aspirin 81 mg 10/22/18 09:00 10/27/18 08:50 Aspirin Ec Tab* PO 81 mg DAILY DOREEN Administration Atorvastatin Calcium 10 mg 10/22/18 18:00 10/26/18 18:49 Lipitor* PO 10 mg QPM DOREEN Administration Carbamazepine 400 mg 10/21/18 22:00 10/27/18 08:50 Tegretol Xr Tab(*) PO 400 mg BID DOREEN Administration Docusate Sodium 100 mg 10/22/18 21:00 10/26/18 21:02 Colace Cap* PO Not Given BEDTIME DOREEN Docusate Sodium 200 mg 10/22/18 10:00 10/27/18 08:50 Colace Cap* PO 200 mg DAILY DOREEN Administration Enoxaparin Sodium 40 mg 10/21/18 20:00 10/26/18 21:07 Lovenox(*) SUBCUT 40 mg Q24H DOREEN Administration Fish Oil 1,000 mg 10/26/18 09:00 10/27/18 08:50 Fish Oil (Nf) PO 1,000 mg DAILY DOREEN Administration Folic Acid 1 mg 10/22/18 09:00 10/27/18 08:50 Folvite Tab* PO 1 mg DAILY DOREEN Administration Mometasone Furoate/Formoterol Fumar 2 puff 10/21/18 21:00 10/27/18 08:27 Dulera 100/5 Mdi* INH 2 puff BID DOREEN Administration Ondansetron HCl 4 mg 10/21/18 19:23 Zofran Inj* IV Q6H PRN NAUSEA/VOMITING Polyethylene Glycol/Electrolytes 17 gm 10/22/18 11:00 10/27/18 09:29 Miralax* PO Not Given BID DOREEN Sodium Chloride 1 spray 10/24/18 08:52 10/24/18 20:22 Sodium Chloride 0.65% Nasal [place]* BOTH NARES 1 spray Q4H PRN Administration CONGESTION Tiotropium [place] 1 cap 10/21/18 21:00 10/27/18 08:27 Spiriva Cap.Inh* INH 1 cap 0900 DOREEN Administration Vitamin B Complex/Vitamin E 1 tab 10/22/18 09:00 10/27/18 08:50 B Complex-50* PO 1 tab DAILY DOREEN Administration Vital Signs Temp Pulse Resp BP Pulse Ox 98.1 F 72 18 129/57 98 10/27/18 11:30 10/27/18 11:30 10/27/18 11:30 10/27/18 11:30 10/27/18 11:30 O/E: Pt in NAD, pt in good spirits HEENT: PERRLA, no JVD Lungs: Diminished air entry, crackles+, no wheeze CVS: S1, S2+, regular Abd: Soft, BS+ Ext: Normal ROM Skin: No rash Neuro: No focal deficits Labs: No new labs Venous duplex: No DVT however area of abnormality that might correspond to location of previous thrombus I/R: 83 yo M with PMH of COPD, chronic dCHF, seizures, CAD with stents, HLD, venous insufficiency, and neuropathy; who was recently placed on home oxygen after hip replacement but subsequently stopped using the oxygen and he did not feel he needed it and now presents with SOB, found to be hypoxic. 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 Pts FiO2 requirements improved Palliative care consult noted D/c home, out pt f/u in 2 weeks
--- NOTE | 2018-10-27 21:32 | DS ---
CC: Dr. Peterson; Dr. Guillen; Dr. Alcala.* DISCHARGE SUMMARY: DATE OF ADMISSION: 10/21/18 DATE OF DISCHARGE: 10/27/18 PRIMARY CARE PROVIDER: Dr. Peterson. ATTENDING PHYSICIAN WHILE IN THE HOSPITAL: Dr. Rosemarie Javier * (dictated by QUIN Fitch). CONSULTING PC NETWORK TECHNICIAN: Dr. Guillen. CONSULTING PALLIATIVE MEDICINE PHYSICIAN: Dr. Alcala. PRIMARY DIAGNOSIS: Acute on chronic respiratory failure with hypoxia. SECONDARY DIAGNOSES: 1. Chronic obstructive pulmonary disease. 2. Chronic diastolic heart failure. 3. Seizure disorder. 4. Coronary artery disease, status post 2 stents. 5. Hypercholesterolemia. 6. Chronic lower extremity edema secondary to venous insufficiency. 7. Neuropathy. 8. History of skin cancer, status post excision. STUDIES WHILE IN THE HOSPITAL: Venous Doppler studies of lower extremities. Impression: No acute lower extremity DVT bilaterally. Chest CTA, no evidence of PE. There does appear to be a small filling defect in the second order pulmonary artery branch of the left upper lobe, which cannot be produced on axial coronal images, likely an artifact, small bilateral effusions, right greater than left. PERTINENT LABORATORY DATA: White blood cell count on admission 4.9, creatinine on 10/26/18 was 1.18. HISTORY OF PRESENT ILLNESS/HOSPITAL COURSE: The patient is an 83-year-old white male who presented with a past medical history of COPD, and coronary artery disease and diastolic heart failure, who presented to the emergency department on 10/21/18 due to shortness of breath. Please see admitting history and physical dictated by Sandra Zarate, nurse practitioner for further details. The patient notes a few months ago after having hip surgery, he did require oxygen at home, but then titrated himself off of it and was feeling comfortable. During his hospital stay, he was found to be initially hypoxic in the 70s and remained hypoxic and requiring 6 L to 8 L of oxygen via nasal cannula for several days, then ultimately 5 L of oxygen at rest and with exertion. There was some improvement with Lasix, but after 2 days of Lasix, he developed hypotension. He was seen by gyroscopic instrument tester Dr. Guillen during his hospital stay and she stated that it was unable to be determined whether there were PEs that were not visualized during the CT angiogram contributing to his status, but does believe that this is likely progression of his COPD and ultimately recommended discontinuing steroids. During his hospital stay, he met with palliative medicine doctor, Dr. Alcala and the patient was resistant to many services, but ultimately agreed to [facility] coming to assess him at home. On day of discharge, the patient feels comfortable. He has no complaints. He feels no shortness of breath or difficulty breathing at rest or with exertion. Denies chest pain, abdominal pain, dizziness, fever, chills. PHYSICAL EXAMINATION: General: Thin, elderly white male lying upright in hospital bed, appearing in no acute distress. Head: Normocephalic, atraumatic. Eyes: PERRL. Sclerae anicteric. ENT: Mucous membranes moist. Neck: Supple. Lungs: Diminished lung sounds throughout. Cardiac: Regular rate and rhythm without murmurs, rubs, or gallops. Abdomen: Soft, nontender and nondistended. Extremities: No clubbing, cyanosis, or edema. Neuro: The patient is alert and oriented x3, able to move all extremities. No focal deficits. No tremors. DISCHARGE PLAN: Diet: Low sodium diet to assist with peripheral edema. Activity: The patient is to return to normal activity as tolerated. Equipment: Oxygen equipment provided for 5 L oxygen flow. AIM ([facility] Illness [facility]) has been set up to contact the patient for further support in the community. The patient should follow up with primary care provider in 7 to 10 days regarding this hospitalization. He was advised to check his blood pressure and discuss the readings with his PCP to determine if further use of lasix is reasonable. The patient is advised to return to emergency department if he has new or worsening symptoms, chest pain, loss of consciousness. DISCHARGE MEDICATIONS: 1. Spiriva 1 cap inhaled daily. 2. Lasix 20 mg p.o. every other day. Continued home medications, 1. Carbamazepine 400 mg p.o. b.i.d. 2. Lipitor 10 mg p.o. daily. 3. Advair 1 puff inhaled b.i.d. 4. Folic acid 1 mg p.o. daily. 5. Vitamin B 1 tab p.o. daily. 6. Aspirin 81 mg p.o. daily. 7. Fish oil 1000 mg p.o. daily. 8. Colace 100 mg p.o. b.i.d. CONDITION ON DISCHARGE: Stable. DISPOSITION: Home. TIME SPENT: Approximately 45 minutes was spent on this discharge. QUIN FITCH [id number]/[facility] #: [id number] [facility] CENTERBruna
== END 2018-10-27 12:30 | disposition home health service (06) | DRG 189 ==
LOC: ED 15:51 → MED 19:23 → OBSVTOIN 10-22 16:00
PROVIDERS: ADMIT Internal Medicine; ATTEND Internal Medicine
DX: J96.21 Acute and chronic respiratory failure with hypoxia (principal); I50.32 Chronic diastolic (congestive) heart failure; J90 Pleural effusion, not elsewhere classified; I25.10 Atherosclerotic heart disease of native coronary artery without angina pectoris; E78.00 Pure hypercholesterolemia, unspecified; J44.9 Chronic obstructive pulmonary disease, unspecified; K21.9 Gastro-esophageal reflux disease without esophagitis; G40.909 Epilepsy, unspecified, not intractable, without status epilepticus; G62.9 Polyneuropathy, unspecified; I87.2 Venous insufficiency (chronic) (peripheral); Z66 Do not resuscitate; E78.5 Hyperlipidemia, unspecified; Z96.649 Presence of unspecified artificial hip joint; D75.89 Other specified diseases of blood and blood-forming organs; I95.2 Hypotension due to drugs; T50.1X5A Adverse effect of loop [high-ceiling] diuretics, initial encounter; Y92.239 Unspecified place in hospital as the place of occurrence of the external cause; Z95.5 Presence of coronary angioplasty implant and graft; I25.2 Old myocardial infarction; Z98.42 Cataract extraction status, left eye; Z98.41 Cataract extraction status, right eye; Z85.820 Personal history of malignant melanoma of skin; Z86.19 Personal history of other infectious and parasitic diseases; Z82.61 Family history of arthritis; Z72.89 Other problems related to lifestyle; Z87.891 Personal history of nicotine dependence
CPT/HCPCS: 36415; 36600; 71046; 71275; 80048; 80053; 82607; 82746; 82803; 83880; 84484; 85025; 85379; 93005; 93970; 94640; 99284; A9270-GY; G8978-GP-CH; G8979-GP-CH; G8980-GP-CH; J1650; J1940; J7512; Q9967

== ENCOUNTER 2023-03-18 19:47 | Inpatient (IN) ==
[2023-03-18 22:55] LABS: ABS Eosinophils 0.1 10^3/uL (0.0-0.5); ABS Lymphocytes 0.9 10^3/uL (1.0-4.8); ABS Monocytes 0.7 10^3/uL (0.0-1.1); ABS Neutrophils 5.1 10^3/uL (1.5-7.6); Eosinophil % 0.9 %; Hematocrit 44.5 % (38-53); Hemoglobin 15.1 g/dL (13.2-16.3); Lymphocyte % 12.9 %; Mean Corpuscular Hemoglobin 36.6 pg (27-33); Mean Corpuscular Volume 107.5 fL (80-97); Nucleated Red Blood Cells % 0.1 %/100WBC (0.0-0.8); Platelet Count 180 10^3/uL (150-450); Red Blood Count 4.14 10^6/uL (4.06-5.63); Red Cell Distribution Width 14.8 % (12-17); White Blood Count 6.7 10^3/uL (3.6-10.2)
[2023-03-18 23:09] LABS: Albumin/Globulin Ratio 1.3 (1-3); Calcium 9.4 mg/dL (8.6-10.3); Creatinine, Serum 1.27 mg/dL (0.67-1.17); Globulin 3.1 g/dL (2-4); Potassium 4.4 mmol/L (3.5-5.0); Total Bilirubin 0.4 mg/dL (0.2-1.0); Total Protein 7.1 g/dL (6.4-8.9); eGFR CKD-EPI 54.7 (>60)
[2023-03-18 23:23] LABS: Venous Bicarbonate HCO3 25.2 mmol/L (24-28)
[2023-03-19] MEDS ORDERED: Albuterol/Ipratropium NEB.SOL (2.5/0.5 MG) 3 ML NEB.SOLN INH ONE (00:57)
[2023-03-19] MEDS ORDERED: methylPREDNISolone SOD SUCC 125 mg 2 ML VIAL IV ONE (00:57)
[2023-03-19] MEDS ORDERED: Albuterol 2.5mg/3 ml (0.083%) NEB.SOLN INH PRN (02:03)
[2023-03-19] MEDS ORDERED: Albuterol/Ipratropium NEB.SOL (2.5/0.5 MG) 3 ML NEB.SOLN INH PRN (02:33)
[2023-03-19] MEDS ORDERED: Albuterol HFA INHALER 8 gm MDI INH PRN (02:33)
[2023-03-19] MEDS ORDERED: Calcium Carb (TUMS) 500 mg CHEW TAB PO PRN (02:50)
[2023-03-19 06:22] LABS: ABS Lymphocytes 0.2 10^3/uL (1.0-4.8); ABS Monocytes 0.1 10^3/uL (0.0-1.1); ABS Neutrophils 3.4 10^3/uL (1.5-7.6); Eosinophil % 0.1 %; Hematocrit 38.1 % (38-53); Hemoglobin 13.1 g/dL (13.2-16.3); Lymphocyte % 6.2 %; Mean Corpuscular Hemoglobin 36.6 pg (27-33); Mean Corpuscular Hgb Conc 34.3 g/dL (31-36); Mean Corpuscular Volume 106.8 fL (80-97); Mean Platelet Volume 9.4 fL (7.5-11.2); Nucleated Red Blood Cells % 0.1 %/100WBC (0.0-0.8); Platelet Count 166 10^3/uL (150-450); Red Blood Count 3.57 10^6/uL (4.06-5.63); Red Cell Distribution Width 14.5 % (12-17); White Blood Count 3.7 10^3/uL (3.6-10.2)
[2023-03-19] MEDS ORDERED: Aspirin EC 81 mg TAB.EC (enteric coated) PO SCH (09:00)
[2023-03-19] MEDS: FLUTICAS/UMECLI/VILANT 100-62.5-25 MDI (NF) INH SCH (10:04)
[2023-03-19] MEDS ORDERED: Enoxaparin 40 MG/0.4 ML SYR SUBCUT SCH (18:00)
[2023-03-20] MEDS: FLUTICAS/UMECLI/VILANT 100-62.5-25 MDI (NF) INH SCH (07:59)
[2023-03-20] MEDS: Enoxaparin 40 MG/0.4 ML SYR SUBCUT SCH (10:44)
[2023-03-21 07:09] LABS: ABS Eosinophils 0.2 10^3/uL (0.0-0.5); ABS Monocytes 0.7 10^3/uL (0.0-1.1); ABS Neutrophils 4.6 10^3/uL (1.5-7.6); Eosinophil % 2.9 %; Hematocrit 37.1 % (38-53); Hemoglobin 12.6 g/dL (13.2-16.3); Mean Corpuscular Hemoglobin 36.5 pg (27-33); Mean Corpuscular Hgb Conc 33.9 g/dL (31-36); Mean Corpuscular Volume 107.5 fL (80-97); Mean Platelet Volume 9.1 fL (7.5-11.2); Nucleated Red Blood Cells % 0.1 %/100WBC (0.0-0.8); Platelet Count 163 10^3/uL (150-450); Red Blood Count 3.45 10^6/uL (4.06-5.63); Red Cell Distribution Width 14.1 % (12-17); White Blood Count 6.5 10^3/uL (3.6-10.2)
[2023-03-21 07:12] LABS: Calcium 8.5 mg/dL (8.6-10.3); Creatinine, Serum 1.19 mg/dL (0.67-1.17); HDL Cholesterol 46.3 mg/dL; Potassium 4.4 mmol/L (3.5-5.0); eGFR CKD-EPI 59.1 (>60)
[2023-03-21] MEDS: FLUTICAS/UMECLI/VILANT 100-62.5-25 MDI (NF) INH SCH (08:03)
[2023-03-21] MEDS: Enoxaparin 40 MG/0.4 ML SYR SUBCUT SCH (08:35)
[2023-03-22 06:30] LABS: ABS Eosinophils 0.2 10^3/uL (0.0-0.5); ABS Lymphocytes 0.8 10^3/uL (1.0-4.8); ABS Monocytes 0.6 10^3/uL (0.0-1.1); ABS Neutrophils 3.6 10^3/uL (1.5-7.6); Eosinophil % 3.5 %; Hematocrit 38.5 % (38-53); Hemoglobin 13.1 g/dL (13.2-16.3); Mean Corpuscular Hemoglobin 36.4 pg (27-33); Mean Corpuscular Volume 107.2 fL (80-97); Mean Platelet Volume 9.4 fL (7.5-11.2); Nucleated Red Blood Cells % 0.1 %/100WBC (0.0-0.8); Platelet Count 169 10^3/uL (150-450); Red Blood Count 3.59 10^6/uL (4.06-5.63); Red Cell Distribution Width 14.2 % (12-17); White Blood Count 5.3 10^3/uL (3.6-10.2)
[2023-03-22 06:45] LABS: Calcium 8.7 mg/dL (8.6-10.3); Creatinine, Serum 0.95 mg/dL (0.67-1.17); Potassium 4.2 mmol/L (3.5-5.0); eGFR CKD-EPI 77.5 (>60)
[2023-03-22] MEDS: FLUTICAS/UMECLI/VILANT 100-62.5-25 MDI (NF) INH SCH (08:32)
[2023-03-22] MEDS: Enoxaparin 40 MG/0.4 ML SYR SUBCUT SCH (09:48)
[2023-03-23] MEDS: FLUTICAS/UMECLI/VILANT 100-62.5-25 MDI (NF) INH SCH (07:27)
[2023-03-23] MEDS: Enoxaparin 40 MG/0.4 ML SYR SUBCUT SCH (10:25)
[2023-03-23 15:22] LABS: Urine Appearance Clear; Urine Bilirubin Negative (Negative); Urine Blood Negative (Negative); Urine Color Yellow; Urine Glucose Negative (Negative); Urine Ketones Negative (Negative); Urine Nitrite Negative (Negative); Urine Protein Negative (Negative); Urine Specific Gravity 1.023 (1.002-1.030); Urine Urobilinogen Negative (Negative)
[2023-03-24] MEDS: FLUTICAS/UMECLI/VILANT 100-62.5-25 MDI (NF) INH SCH (07:18)
[2023-03-24 10:09] VITALS: BP 106/57
[2023-03-24] MEDS: Enoxaparin 40 MG/0.4 ML SYR SUBCUT SCH (10:17)
== END 2023-03-24 14:20 | disposition home or self-care (01) | DRG 199 ==
LOC: ED 19:47 → EDHOLD 19:47 → SUATTDRO 03-19 02:00 → MED 03-19 12:10
PROVIDERS: ADMIT Internal Medicine; ATTEND Internal Medicine

== ENCOUNTER 2023-05-16 16:45 | Inpatient (IN) ==
[2023-05-16 18:14] LABS: ABS Eosinophils 0.1 10^3/uL (0.0-0.5); ABS Lymphocytes 0.5 10^3/uL (1.0-4.8); ABS Neutrophils 6.1 10^3/uL (1.5-7.6); ABS Nucleated RBC 0.01 10^3/ul; Eosinophil % 0.9 %; Hematocrit 43.7 % (38-53); Hemoglobin 15.1 g/dL (13.2-16.3); Lymphocyte % 6.2 %; Mean Corpuscular Hemoglobin 37.7 pg (27-33); Mean Corpuscular Hgb Conc 34.4 g/dL (31-36); Mean Corpuscular Volume 109.3 fL (80-97); Mean Platelet Volume 10.4 fL (7.5-11.2); Nucleated Red Blood Cells % 0.1 %/100WBC (0.0-0.8); Platelet Count 162 10^3/uL (150-450); White Blood Count 7.7 10^3/uL (3.6-10.2)
[2023-05-16 18:23] LABS: Activated Partial Thrombo Time 30.7 seconds (26.0-38.0); Albumin 3.8 g/dL (3.2-5.2); Albumin/Globulin Ratio 1.3 (1-3); C Reactive Protein 115.47 mg/L (<8.01); Calcium 8.9 mg/dL (8.6-10.3); Creatinine, Serum 1.26 mg/dL (0.67-1.17); INR 1.02 (0.83-1.13); Potassium 4.5 mmol/L (3.5-5.0); Total Bilirubin 0.5 mg/dL (0.2-1.0); Total Protein 6.8 g/dL (6.4-8.9); eGFR CKD-EPI 55.2 (>60)
[2023-05-16 19:39] LABS: High Sensitivity Troponin 1 Hr 21 pg/mL (<20)
[2023-05-16] MEDS ORDERED: Iodixanol (CONTRAST) 320 MG/ML 100 ML SDV IV ONE (21:45)
[2023-05-16] MEDS ORDERED: cefTRIAXone 1 gm/50 mL D5W 1 GM/50 ML BAG IV ONE (21:49)
[2023-05-16] MEDS ORDERED: Dexamethasone IV 4 MG/ML VIAL 1 ml VIAL IV SLOW PU ONE (21:49)
[2023-05-16] MEDS ORDERED: Azithromycin 500 mg/250 ml NS 500 MG/250 ML BAG IVPB ONE (21:49)
[2023-05-16] MEDS ORDERED: Albuterol/Ipratropium NEB.SOL (2.5/0.5 MG) 3 ML NEB.SOLN INH PRN (23:23)
[2023-05-16 23:44] LABS: PCO2 Arterial 32 mmHg (35-45); PO2 Arterial 96 mmHg (80-100)
[2023-05-16] MEDS ORDERED: Furosemide 40 mg/4 ml IV VIAL IV ONE (23:48)
[2023-05-16] MEDS ORDERED: Calcium Carb (TUMS) 500 mg CHEW TAB PO PRN (23:57)
[2023-05-17] MEDS: Enoxaparin 40 MG/0.4 ML SYR SUBCUT SCH ×2 (00:18→22:17)
[2023-05-17] MEDS: Albuterol 2.5mg/3 ml (0.083%) NEB.SOLN INH SCH ×4 (01:37→20:50)
[2023-05-17] MEDS: Aspirin EC 81 mg TAB.EC (enteric coated) PO SCH (08:49)
[2023-05-17] MEDS ORDERED: methylPREDNISolone SOD SUCC 40 mg/ml 1 ml VIAL IV SCH (09:00)
[2023-05-17] MEDS: FLUTICAS/UMECLI/VILANT 100-62.5-25 MDI (NF) INH SCH (12:26)
[2023-05-17] MEDS ORDERED: Morphine 2 MG/ML SYRINGE IV ONE (20:12)
[2023-05-17] MEDS ORDERED: Morphine 2 MG/ML SYRINGE ONE (20:13)
[2023-05-17] MEDS: methylPREDNISolone SOD SUCC 40 mg/ml 1 ml VIAL IV SCH (20:15)
[2023-05-17] MEDS: cefTRIAXone 1 gm/50 mL D5W 1 GM/50 ML BAG IV SCH (22:19)
[2023-05-17] MEDS: Azithromycin 500 mg/250 ml NS 500 MG/250 ML BAG IVPB SCH (23:30)
[2023-05-18 01:10] LABS: Calcium 8.5 mg/dL (8.6-10.3); Creatinine, Serum 2.42 mg/dL (0.67-1.17); Potassium 4.9 mmol/L (3.5-5.0); eGFR CKD-EPI 25.2 (>60)
[2023-05-18] MEDS: Albuterol 2.5mg/3 ml (0.083%) NEB.SOLN INH SCH ×4 (01:23→20:00)
[2023-05-18 06:13] LABS: Albumin 3.3 g/dL (3.2-5.2); Albumin/Globulin Ratio 1.2 (1-3); Calcium 8.6 mg/dL (8.6-10.3); Creatinine, Serum 2.82 mg/dL (0.67-1.17); Globulin 2.8 g/dL (2-4); Magnesium 2.4 mg/dL (1.9-2.7); Phosphorus 6.1 mg/dL (2.5-5.0); Potassium 4.8 mmol/L (3.5-5.0); Total Bilirubin 0.3 mg/dL (0.2-1.0); Total Protein 6.1 g/dL (6.4-8.9)
[2023-05-18] MEDS: FLUTICAS/UMECLI/VILANT 100-62.5-25 MDI (NF) INH SCH (07:28)
[2023-05-18 07:51] LABS: ABS Lymphocytes 0.6 10^3/uL (1.0-4.8); ABS Monocytes 0.8 10^3/uL (0.0-1.1); ABS Neutrophils 6.4 10^3/uL (1.5-7.6); ABS Nucleated RBC 0.01 10^3/ul; Eosinophil % 0.1 %; Hematocrit 40.2 % (38-53); Hemoglobin 13.8 g/dL (13.2-16.3); Lymphocyte % 7.5 %; Macrocytosis 2+; Mean Corpuscular Hemoglobin 37.9 pg (27-33); Mean Corpuscular Hgb Conc 34.3 g/dL (31-36); Mean Corpuscular Volume 110.6 fL (80-97); Mean Platelet Volume 10.2 fL (7.5-11.2); Nucleated Red Blood Cells % 0.1 %/100WBC (0.0-0.8); Platelet Count 152 10^3/uL (150-450); Red Blood Count 3.64 10^6/uL (4.06-5.63); Red Cell Distribution Width 14.4 % (12-17); White Blood Count 7.8 10^3/uL (3.6-10.2)
[2023-05-18] MEDS: Aspirin EC 81 mg TAB.EC (enteric coated) PO SCH (09:07)
[2023-05-18] MEDS: methylPREDNISolone SOD SUCC 40 mg/ml 1 ml VIAL IV SCH ×2 (09:10→20:25)
[2023-05-18] MEDS: Pantoprazole VIAL 40 MG VIAL IV SCH (10:54)
[2023-05-18 11:40] LABS: Urine Appearance Cloudy; Urine Bilirubin Negative (Negative); Urine Blood 2+ (Negative); Urine Color Yellow; Urine Glucose 3+(>=500 mg/dL) (Negative); Urine Ketones Negative (Negative); Urine Nitrite Negative (Negative); Urine Protein 1+(30 mg/dL) (Negative); Urine Specific Gravity 1.017 (1.002-1.030); Urine Urobilinogen Negative (Negative)
[2023-05-18 11:57] LABS: Urine Bacteria Absent (Absent); Urine Red Blood Cell 3+(>10/hpf) (Absent); Urine White Blood Cell Trace(0-5/hpf) (Absent)
[2023-05-18] MEDS: cefTRIAXone 1 gm/50 mL D5W 1 GM/50 ML BAG IV SCH (21:54)
[2023-05-18] MEDS: Azithromycin 500 mg/250 ml NS 500 MG/250 ML BAG IVPB SCH (23:31)
[2023-05-19] MEDS: Albuterol 2.5mg/3 ml (0.083%) NEB.SOLN INH SCH ×2 (01:49→07:46)
[2023-05-19 04:19] LABS: Albumin 3.2 g/dL (3.2-5.2); Albumin/Globulin Ratio 1.2 (1-3); Calcium 8.5 mg/dL (8.6-10.3); Creatinine, Serum 1.34 mg/dL (0.67-1.17); Globulin 2.6 g/dL (2-4); Magnesium 2.3 mg/dL (1.9-2.7); Total Bilirubin 0.4 mg/dL (0.2-1.0); Total Protein 5.8 g/dL (6.4-8.9); eGFR CKD-EPI 51.3 (>60)
[2023-05-19 04:41] LABS: ABS Lymphocytes 0.4 10^3/uL (1.0-4.8); ABS Monocytes 0.5 10^3/uL (0.0-1.1); ABS Neutrophils 5.8 10^3/uL (1.5-7.6); Eosinophil % 0.1 %; Hematocrit 37.8 % (38-53); Hemoglobin 12.9 g/dL (13.2-16.3); Lymphocyte % 6.6 %; Mean Corpuscular Hemoglobin 37.6 pg (27-33); Mean Corpuscular Hgb Conc 34.2 g/dL (31-36); Mean Corpuscular Volume 109.9 fL (80-97); Mean Platelet Volume 9.8 fL (7.5-11.2); Platelet Count 160 10^3/uL (150-450); Red Blood Count 3.44 10^6/uL (4.06-5.63); Red Cell Distribution Width 14.3 % (12-17); White Blood Count 6.7 10^3/uL (3.6-10.2)
[2023-05-19] MEDS: FLUTICAS/UMECLI/VILANT 100-62.5-25 MDI (NF) INH SCH (07:46)
[2023-05-19] MEDS ORDERED: Albuterol 2.5mg/3 ml (0.083%) NEB.SOLN INH PRN (07:51)
[2023-05-19] MEDS: methylPREDNISolone SOD SUCC 40 mg/ml 1 ml VIAL IV SCH (08:51)
[2023-05-19] MEDS: Pantoprazole VIAL 40 MG VIAL IV SCH (08:51)
[2023-05-19] MEDS: Aspirin EC 81 mg TAB.EC (enteric coated) PO SCH (08:52)
[2023-05-19] MEDS ORDERED: Lactated Ringers 1000 ml BAG 1,000 ML IV ONE (09:42)
[2023-05-19] MEDS: Enoxaparin 40 MG/0.4 ML SYR SUBCUT SCH (20:51)
[2023-05-19] MEDS: cefTRIAXone 1 gm/50 mL D5W 1 GM/50 ML BAG IV SCH (20:54)
[2023-05-20 05:03] LABS: ABS Eosinophils 0.1 10^3/uL (0.0-0.5); ABS Lymphocytes 0.7 10^3/uL (1.0-4.8); ABS Monocytes 0.7 10^3/uL (0.0-1.1); ABS Neutrophils 5.4 10^3/uL (1.5-7.6); Eosinophil % 0.9 %; Hematocrit 37.8 % (38-53); Hemoglobin 12.9 g/dL (13.2-16.3); Lymphocyte % 10.1 %; Mean Corpuscular Hemoglobin 37.3 pg (27-33); Mean Corpuscular Hgb Conc 34.1 g/dL (31-36); Mean Corpuscular Volume 109.5 fL (80-97); Mean Platelet Volume 9.4 fL (7.5-11.2); Platelet Count 161 10^3/uL (150-450); Red Blood Count 3.45 10^6/uL (4.06-5.63); Red Cell Distribution Width 14.2 % (12-17); White Blood Count 6.8 10^3/uL (3.6-10.2)
[2023-05-20 05:13] LABS: Calcium 8.8 mg/dL (8.6-10.3); Creatinine, Serum 0.96 mg/dL (0.67-1.17); Potassium 4.1 mmol/L (3.5-5.0); eGFR CKD-EPI 76.5 (>60)
[2023-05-20] MEDS: Aspirin EC 81 mg TAB.EC (enteric coated) PO SCH (09:16)
[2023-05-20] MEDS: Pantoprazole VIAL 40 MG VIAL IV SCH (09:16)
[2023-05-20] MEDS: methylPREDNISolone SOD SUCC 40 mg/ml 1 ml VIAL IV SCH (13:23)
[2023-05-20] MEDS: FLUTICAS/UMECLI/VILANT 100-62.5-25 MDI (NF) INH SCH (14:06)
[2023-05-20] MEDS: Enoxaparin 40 MG/0.4 ML SYR SUBCUT SCH (22:32)
[2023-05-20] MEDS: cefTRIAXone 1 gm/50 mL D5W 1 GM/50 ML BAG IV SCH (23:16)
[2023-05-21] MEDS: FLUTICAS/UMECLI/VILANT 100-62.5-25 MDI (NF) INH SCH (08:08)
[2023-05-21] MEDS: Aspirin EC 81 mg TAB.EC (enteric coated) PO SCH (08:44)
[2023-05-21] MEDS: methylPREDNISolone SOD SUCC 40 mg/ml 1 ml VIAL IV SCH (08:47)
[2023-05-21] MEDS: Pantoprazole VIAL 40 MG VIAL IV SCH (08:47)
[2023-05-21] MEDS ORDERED: methylPREDNISolone SOD SUCC 40 mg/ml 1 ml VIAL IV SCH (09:00)
[2023-05-21] MEDS: Enoxaparin 40 MG/0.4 ML SYR SUBCUT SCH (20:45)
[2023-05-22] MEDS: FLUTICAS/UMECLI/VILANT 100-62.5-25 MDI (NF) INH SCH (07:43)
[2023-05-22] MEDS: Aspirin EC 81 mg TAB.EC (enteric coated) PO SCH (09:08)
[2023-05-22] MEDS: methylPREDNISolone SOD SUCC 40 mg/ml 1 ml VIAL IV SCH (09:14)
[2023-05-22] MEDS: Pantoprazole VIAL 40 MG VIAL IV SCH (09:14)
[2023-05-22] MEDS: Enoxaparin 40 MG/0.4 ML SYR SUBCUT SCH (20:20)
[2023-05-23] MEDS: FLUTICAS/UMECLI/VILANT 100-62.5-25 MDI (NF) INH SCH (07:26)
[2023-05-23] MEDS: Pantoprazole VIAL 40 MG VIAL IV SCH (09:52)
[2023-05-23] MEDS: Aspirin EC 81 mg TAB.EC (enteric coated) PO SCH (09:53)
[2023-05-23] MEDS: Enoxaparin 40 MG/0.4 ML SYR SUBCUT SCH (21:01)
[2023-05-24] MEDS: Aspirin EC 81 mg TAB.EC (enteric coated) PO SCH (09:03)
[2023-05-24] MEDS: Pantoprazole VIAL 40 MG VIAL IV SCH (09:03)
[2023-05-24] MEDS: FLUTICAS/UMECLI/VILANT 100-62.5-25 MDI (NF) INH SCH (09:12)
[2023-05-24 13:44] VITALS: BP 98/53
== END 2023-05-24 16:15 | disposition home or self-care (01) | DRG 189 ==
LOC: ED 16:45 → EDHOLD 23:09 → SUATTDRO 23:09 → ICU 05-17 00:50 → MEDTELE 05-17 06:28
PROVIDERS: ADMIT Hospitalist; ATTEND Internal Medicine